=== PATIENT | female | born 1985 | race Caucasian/White ===

== ENCOUNTER 2020-12-23 01:15 | Day surgery (SDC) | payer BC, SELFPAY ==
[2020-12-09 11:07] VITALS: BMI 30.8
[2020-12-23 09:36] VITALS: BP 124/78; PULSE 93; RESP 18; TEMP 35.9; O2SAT 100
[2020-12-23] MEDS: LACTATED RINGERS 1,000 ML 150 ML IV CONT (09:56)
--- NOTE | 2020-12-23 11:00 | WPDANESEPPF ---
Anes - Initial Pre Proc Eval Procedure: Operation Date: 12/23/20 10:45 Proposed Procedures p Esophagogastroduodenoscopy - Cory Reagan MD Date/Time: 12/23/20 11:00 Surgeon: Cory Reagan MD Pre Op Diagnosis: dysphagia Patient Data Age: 35 Gender: F Height: 1.65 m Weight: 93 kg Last Vital Signs Temp 35.9 C L 12/23/20 09:36 Pulse 93 12/23/20 09:36 Resp 18 12/23/20 09:36 BP 124/78 12/23/20 09:36 Pulse Ox 100 12/23/20 09:36 Allergies Allergy/AdvReac Type Severity Reaction Status Date / Time Sulfa (Sulfonamide Allergy Severe Swelling Verified 12/23/20 09:35 Antibiotics) of Lip/Tongue/Throat Home Medications Medication Instructions Recorded Confirmed Type albuterol sulfate 2.5 mg INHALATION Q4-6H PRN #3 ml 07/08/20 12/23/20 Rx albuterol sulfate 90 mcg/actuation 2 puff INHALATION QID PRN #8 gm 09/19/20 12/09/20 Rx aerosol inhaler Patient hx anesthesia problems: none Family hx anesthesia problems: none PMFSH Past Medical History Medical History (Updated 12/22/20 @ 15:13 by Abilio Rollins DO) Asthma Encounter for long-term (current) use of other medications Family history of osteoporosis Nocturnal leg cramps Restless leg syndrome Family History Family History Mother Hypertension Diabetes mellitus Grandparent Family history of malignant neoplasm of breast Family history of type 2 diabetes mellitus Father COPD (chronic obstructive pulmonary disease) Emphysema lung Small vessel disease Grandparent Hypertension Grandparent Diabetes mellitus Social History Social History Smoking status: Never smoker Alcohol intake: never Substance use: current Substance use type: marijuana Other substance usage details: COUPLE TIMES A WEEK Living arrangements: with family Gender identity (if verbalized by the patient): Female Spiritual care concerns: No Anes - Eval Final PreProcedure Day of Procedure 12/23/20 11:00 Patient weight: obese Heart: regular rate and rhythm Lungs: clear to auscultation and normal air movement Airway: Mallampati scale class II Neurological: alert and oriented Last oral intake: >/= 8 hours ASA classification: III Emergent: no Anesthetic plan: proceed Anesthesia type and monitoring: general GIVS and standard monitoring Informed Consent: The patient's anesthetic plan and its attendant risks and benefits were discussed with the patient/family/POA. Questions were solicited and answers provided to the satisfaction of the patient/family/POA.
[2020-12-23] MEDS: BENZOCAINE (*SP) 60 ML SPRAY CAN (HURRICAINE) 1 SPRAY MUCOUS MEM (11:28)
--- NOTE | 2020-12-23 11:39 | PM.HPGS ---
History of Present Illness History of Present Illness Consent: Risks, benefits, and alternatives have been discussed and questions answered. Patient agrees to proceed with procedure. Chief complaint: dysphagia Narrative: Eleanor Quiroga is a 35 year old female with scratchy cough and last 2 months also whitish sputum, using tums, never had EGD or tried PPI. She has seen ENT. Also h/o asthma. Review of Systems Constitutional: Constitutional: Denies headache(s) and Denies weakness Eyes: Eyes: Denies blurry vision ENT: Reports Normal hearing present, Denies headache(s) and Denies neck pain Cardiovascular: Cardiovascular: Denies chest pain and Denies dyspnea Respiratory: Respiratory: Denies dyspnea Gastrointestinal: Gastrointestinal: Reports no additional gastrointestinal complaints Genitourinary: Genitourinary: Denies dysuria Musculoskeletal: Musculoskeletal: Denies neck pain Integumentary/Breasts: Skin/Breast: Denies dry skin Neurologic: Reports Normal hearing present, Denies headache(s) and Denies weakness Psychiatric: Psychiatric: Denies anxiety Endocrine: Endocrine: Denies change in body appearance Hematologic/Lymphatic: Hematologic/Lymphatic: Denies easy bleeding Allergic/Immunologic: Allergic/Immunologic: Denies urticaria PMFSH Past Medical History Medical History (Updated 12/23/20 @ 11:40 by Cory Reagan MD) Asthma Cough Encounter for long-term (current) use of other medications Family history of osteoporosis Nocturnal leg cramps Restless leg syndrome Family History Family History Mother Hypertension Diabetes mellitus Grandparent Family history of malignant neoplasm of breast Family history of type 2 diabetes mellitus Father COPD (chronic obstructive pulmonary disease) Emphysema lung Small vessel disease Grandparent Hypertension Grandparent Diabetes mellitus Social History Social History Smoking status: Never smoker Alcohol intake: never Substance use: current Substance use type: marijuana Other substance usage details: COUPLE TIMES A WEEK Living arrangements: with family Gender identity (if verbalized by the patient): Female Spiritual care concerns: No Meds Home Medications and Allergies Home Medications Medication Instructions Recorded Confirmed Type albuterol sulfate 2.5 mg INHALATION Q4-6H PRN #3 ml 07/08/20 12/23/20 Rx albuterol sulfate 90 mcg/actuation 2 puff INHALATION QID PRN #8 gm 09/19/20 12/09/20 Rx aerosol inhaler Allergies Allergy/AdvReac Type Severity Reaction Status Date / Time Sulfa (Sulfonamide Allergy Severe Swelling Verified 12/23/20 09:35 Antibiotics) of Lip/Tongue/Throat Vital Signs Vital Signs - 24 hr 12/23/20 09:36 Temperature 96.6 F L Pulse Rate 93 Respiratory Rate 18 Blood Pressure 124/78 Pulse Oximetry 100 Exam Const: General: comfortable and no acute distress HENMT: General nose exam: Normal nares present Eyes: General: appearance normal, both eyes and all related structures Neck: Neck: no JVD Resp: Auscultation: clear to auscultation bilaterally Cardio: Rate: regular rate Rhythm: regular rhythm GI: Inspection: non-distended GI Palp: Yes Soft to palpation Skin: General skin exam: normal color Neuro: General: gait normal Speech: normal speech Extrem: General: normal to inspection Psych: Mental Status: mental status grossly normal Assessment and Plan Assessment and plan (1) Cough: Code(s): R05 - Cough Status: Acute Assessment and Plan: egd, assess for reflux, etc
[2020-12-23 11:43] VITALS: BP 107/62; PULSE 104; RESP 23; O2SAT 98
[2020-12-23 11:53] VITALS: BP 102/75; PULSE 91; RESP 13; O2SAT 100
[2020-12-23 12:03] VITALS: BP 121/80; PULSE 86; RESP 15; O2SAT 96
== END 2020-12-23 12:16 | disposition home or self-care (01) ==
PROVIDERS: PCP Family Medicine; Visit Provider Internal Medicine Gastroenterology
PROC: 0DJ08ZZ Inspection of Upper Intestinal Tract, Via Natural or Artificial Opening Endoscopic (ICD-10-PCS; CPT 43235; principal; 2020-12-23 10:45)
DX: R05 Cough (principal); K44.9 Diaphragmatic hernia without obstruction or gangrene; K29.50 Unspecified chronic gastritis without bleeding; R13.10 Dysphagia, unspecified; Z79.51 Long term (current) use of inhaled steroids; J45.909 Unspecified asthma, uncomplicated; G25.81 Restless legs syndrome; F12.90 Cannabis use, unspecified, uncomplicated; E66.9 Obesity, unspecified; Z68.34 Body mass index [BMI] 34.0-34.9, adult
CPT/HCPCS: 43239; 88305; J2001; J2704; J7120

== ENCOUNTER 2022-07-06 12:11 | Outpatient (CLI) | payer OTHER, SELFPAY ==
--- NOTE | ~2022-07-06 | XR_ITS ---
Clinical Indication: Cough PA and lateral views of the chest: Comparison: 05/21/2019 Findings: The lungs are clear, without evidence of focal consolidation or pleural effusion. Cardiome diastinal silhouette is within normal limits. Bones and soft tissues are unremarkable. Impression: Normal chest. Reviewed, dictated and finalized at [facility]. [employer] Impression: Normal chest.
[2022-07-06 20:03] LABS: Cholesterol 237 mg/dL (0-200); HDL Direct 42 mg/dL; Triglycerides 297 mg/dL (<150)
[2022-07-06 20:07] LABS: Iron 28 ug/dL (37-170)
[2022-07-06 20:14] LABS: LDL Cholesterol Direct 125 mg/dL
[2022-07-06 20:19] LABS: Percent Iron Saturation 7 % (20-50)
== END 2022-07-06 12:12 | disposition home or self-care (01) ==
PROVIDERS: PCP Family Medicine; Visit Provider Family Medicine
DX: R06.00 Dyspnea, unspecified (principal); J45.901 Unspecified asthma with (acute) exacerbation
CPT/HCPCS: 36415; 71046; 80061; 82607; 83540; 83550

== ENCOUNTER 2023-06-30 13:08 | Emergency (ER) | payer OTHER, SELFPAY ==
[2023-06-30 13:24] VITALS: BP 126/81; PULSE 80; RESP 20; TEMP 36.9; O2SAT 100
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
== END 2023-06-30 13:56 | disposition home or self-care (01) ==
PROVIDERS: Emergency Provider Nurse Practitioner; PCP Family Medicine
DX: M54.6 Pain in thoracic spine (principal); J45.909 Unspecified asthma, uncomplicated; G25.81 Restless legs syndrome; F12.90 Cannabis use, unspecified, uncomplicated
CPT/HCPCS: 99213; G0463

== ENCOUNTER 2024-02-03 17:41 | Emergency (ER) | payer OTHER, SELFPAY ==
[2024-02-03 17:47] VITALS: BP 137/75; PULSE 94; RESP 20; TEMP 37.2; O2SAT 100
--- NOTE | 2024-02-03 17:58 | ED.URI ---
HPI - URI/Sore Throat General Chief Complaint: Asthma Stated Complaint: asthma/cough/sob Time Seen by Provider: 02/03/24 18:08 Source: patient and RN notes reviewed Mode of arrival: ambulatory Limitations: no limitations History of Present Illness HPI Narrative: 38-year-old female with history of asthma presents with concern for asthma exacerbation. She reports cough, shortness of breath. Reports in the past several days she has used 60 puffs of her inhaler she has used her nebulizer 10 times. She last used her nebulizer this morning. She reports general malaise, fatigue, runny nose, stuffy nose, sore throat, cough. MD elicited complaint: cough and sore throat Related Data Allergies Allergy/AdvReac Type Severity Reaction Status Date / Time Sulfa (Sulfonamide Allergy Severe Swelling Verified 02/03/24 17:48 Antibiotics) of Lip/Tongue/Throat Review of Systems Review of Systems: CONSTITUTIONAL: Reports malaise, fatigue. Denies chills, sweats, or fever. EYES: Denies visual changes, redness, or discharge. ENT: Reports rhinorrhea, congestion, and sore throat. CARDIOVASCULAR: Denies chest pain, palpitations, or edema. RESPIRATORY: Reports cough, wheezing, dyspnea. GASTROINTESTINAL: Denies abdominal pain, nausea, diarrhea. Reports stomach ache SKIN: Denies rash or itching. MUSCULOSKELETAL: Reports myalgia. NEUROLOGIC: Reports headache. All systems reviewed & are unremarkable except as noted in HPI and below PMFSH Past Medical History Medical History (Updated 02/03/24 @ 18:23 by Tata Reyes NP) Asthma Cough Encounter for long-term (current) use of other medications Family history of osteoporosis Nocturnal leg cramps Restless leg syndrome Family History Family History Mother Hypertension Diabetes mellitus Grandparent Family history of malignant neoplasm of breast Family history of type 2 diabetes mellitus Father COPD (chronic obstructive pulmonary disease) Emphysema lung Small vessel disease Grandparent Hypertension Grandparent Diabetes mellitus Social History Social History (Updated 02/23/23 @ 11:48 by Maya Mitchell MA) Smoking status: Never smoker Alcohol intake: never Substance use: current Substance use type: marijuana Other substance usage details: COUPLE TIMES A WEEK Lack of Transportation: No Lack of Food: Never True Current Housing: I Have Housing Concerned About Future Housing: No Difficulty Paying Gas/Electric Bills: YES Difficulty Paying for Meds: No Currently Unemployed: No Education: Decline to Answer Difficulty w/ Childcare or Family Care: No Living arrangements: with family Gender identity (if verbalized by the patient): Female Spiritual care concerns: No Comments At time of signature, agree with nursing past medical, surgical, social and family history. There is no relevant family history pertinent to the presenting complaint Exam Narrative: GENERAL: Nontoxic-appearing, well-nourished, and in no acute distress. HEAD: Normocephalic EYES: PERRLA, conjunctivae clear ENT: Nares clear, turbinates edematous and erythematous, clear discharge. Mucous membranes moist. TM pearly gonzáles with dull light reflex bilaterally; no tragal tenderness. Oropharynx not erythematous without lesions. Tonsils not enlarged and without exudate, no drooling, no hoarseness, no trismus, uvula midline. NECK: Supple. No lymphadenopathy CHEST: Inspiratory wheeze throughout, scattered expiratory wheeze, breath sounds equal. No rhonchi, rales, or stridor. Conversational dyspnea HEART: Regular rate and rhythm. No murmur heard. SKIN: Warm, dry, no rash. NEURO: Alert and oriented x3. PSYCH: Normal mood and affect Course Course Emergency Course: Patient is aware of diagnosis, understands and agrees to treatment plan. Anticipatory guidance given. Patient agrees to follow-up as directed and is aware
[2024-02-03] MEDS: IPRATROPIUM 0.5 MG/ALBUTEROL SULFATE 2.5 MG AMPUL.NEB 3 ML INHALATION (18:27)
[2024-02-03 18:30] LABS: EDSTREPNEGPOS1 Negative
[2024-02-03 18:45] VITALS: PULSE 90; RESP 20; O2SAT 100
== END 2024-02-03 18:48 | disposition home or self-care (01) ==
PROVIDERS: Emergency Provider Nurse Practitioner; PCP Family Medicine
DX: J45.901 Unspecified asthma with (acute) exacerbation (principal); Z20.822 Contact with and (suspected) exposure to COVID-19; F12.90 Cannabis use, unspecified, uncomplicated; G25.81 Restless legs syndrome
CPT/HCPCS: 87081; 87426; 87880; 94640; 99213; G0463

== ENCOUNTER 2024-07-17 08:18 | Emergency (ER) | payer OTHER, SELFPAY ==
[2024-07-17 08:26] VITALS: BP 120/85; PULSE 103; RESP 20; TEMP 37.1; O2SAT 100
--- OUTSIDE RECORDS SUMMARY | 2024-07-17 08:28 | XMS_ITS | Data Portability ---
Author Organization [facility] Address [address] [place] [address] Care Team Providers Care Creative Designer Name Role Phone NEETU ADAMES Primary Care Provider Assessment No assessment recorded. Plan of Treatment Reminders Order Date Submit Date Provider Last Modified By Organization Details Last Modified Time Details Appointments None recorded. Lab urinalysis, dipstick 2015 016 [email or web address] In-Office Order, Internal Use Only DO Not Attach Compendium DO Not Attach Compendium, Do Not Delete/merge, [id number] 6 17:15:47 bacterial vaginosis + vaginitis panel, vaginal 2015 016 [facility], [address] [place] [address], [address], [place], [address], 6 07:14:15 culture, vaginal/rec kayleigh, streptococc us group B 2015 016 [facility], [address], [address], [place], [address], 6 07:14:16 urinalysis, dipstick 2015 016 [place] In-Office Order, Internal Use Only DO Not Attach Compendium DO Not Attach Compendium, Do Not Delete/merge, [id number] 6 13:07:36 urinalysis, dipstick 2015 016 In-Office Order, Internal Use Only DO Not Attach Compendium DO Not Attach Compendium, Do Not Delete/merge, [id number] 6 04:29:22 urinalysis, dipstick 2015 016 In-Office Order, Internal Use Only DO Not Attach Compendium DO Not Attach Compendium, Do Not Delete/merge, [id number] 6 04:29:19 bacterial vaginosis + vaginitis panel, vaginal 2015 016 [facility], [address], [address], [place], [address], 6 04:32:55 Referral None recorded. Procedures None recorded. Surgeries None recorded. Imaging None recorded. Medication Orders None recorded. Patient TargetsNo targets recorded. Patient Instructions Encounter Date Encounter Id Patient Instructions Last Modified By Organization Details Last Modified Time 03/05/2016 [id number] GBS culture was sent. Patient was informed that upper back pain was most likely musculoskeletal in nature. labor precautions were given. Patient will receive GBS culture next visit. [email or web address] Not available 03/07/2016 17:15:47 03/11/2016 [id number] Flu vaccination was ordered. [email or web address] Not available 03/11/2016 12:49:00 03/19/2016 [id number] Patient denies vaginal bleeding and leakage of fluid. Labor precautions were given. [email or web address] Not available 03/19/2016 13:12:39 03/23/2016 [id number] Labor precaution s were given. [email or web address] Not available 2016 16:00:30 05/10/2016 [id number] Care at Home With Your Baby: Care Instructions [email or web address] Not available 05/17/2016 16:47:31 Patient is doing well. Vaginitis panel was sent. Patient's partner will have a vasectomy. [email or web address] Not available 06/14/2016 13:07:27 Reason for Referral None Reported. Results Created Date Observation Date Name Description Value Unit Range Abnormal Flag Note LastModifiedBy Organization Detail LastModifiedTime 03/23/20 16 03/23/2016 urina lysis , dipst ick Leukocytes Negati ve Not Available In-Office Order Internal Use Only DO Not Attach Compendium DO Not Attach Compendium, Do Not Delete/merge, 03/23/2016 11:12:00 03/23/20 16 03/23/2016 urina lysis , dipst ick Nitrite negati ve Not Available In-Office Order Internal Use Only DO Not Attach Compendium DO Not Attach Compendium, Do Not Delete/merge, 03/23/2016 11:12:00 03/23/20 16 03/23/2016 urina lysis , dipst ick Urobilinogen .2 Not Available In-Of fice Order Internal Use Only DO Not Attach Compendium DO Not Attach Compendium, Do Not Delete/merge, 03/23/2016 11:12:00 03/23/20 16 03/23/2016 urina lysis , dipst ick Protein Negati ve Not Available In-Office Order Internal Use Only DO Not Attach Compendium DO Not Attach Compendium, Do Not Delete/merge, 03/23/2016 11:12:00 03/23/20 16 03/23/2016 urina lysis , dipst ick pH 7.0 Not Available In-Office Order Internal Use Only DO Not Attach Compendium DO Not Attach Compendium, Do Not Delete/merge, 03/23/2016 11:12:00 03/23/20 16 03/23/2016 urina lysis , dipst ick Blood Negati ve Not Available In-Office Order Internal Use Only DO Not Attach Compendium DO Not Attach Compendium, Do Not Delete/merge, 03/23/2016 11:12:00 03/23/20 16 03/23/2016 urina lysis , dipst ick Specific Bush 1.020 Not Available In-Off ice Order Internal Use Only DO Not Attach Compendium DO Not Attach Compendium, Do Not Delete/merge, 03/23/2016 11:12:00 03/23/20 16 03/23/2016 urina lysis , dipst ick Ketone Negati ve Not Available In-Office Order Internal Use Only DO Not Attach Compendium DO Not Attach Compendium, Do Not Delete/merge, 03/23/2016 11:12:00 03/23/20 16 03/23/2016 urina lysis , dipst ick Bilirubin Negati ve Not Available In-Office Order Internal Use Only DO Not Attach Compendium DO Not Attach Compendium, Do Not Delete/merge, [id number] 03/23/2016 11:12:00 03/23/20 16 03/23/2016 urina lysis , dipst ick Glucose Negati ve Not Available In-Office Order Internal Use Only DO Not Attach Compendium DO Not Attach Compendium, Do Not Delete/merge, [id number] 03/23/2016 11:12:00 03/23/20 16 03/23/2016 urina lysis , dipst ick Appearance Cloudy Not Available In-Offi ce Order Internal Use Only DO Not Attach Compendium DO Not Attach Compendium, Do Not Delete/merge, [id number] 03/23/2016 11:12:00 03/23/20 16 03/23/2016 urina lysis , dipst ick Color Dark Yellow Not Available In-Office Order Internal Use Only DO Not Attach Compendium DO Not Attach Compendium, Do Not Delete/merge, [id number] 03/23/2016 11:12:00 03/19/20 16 03/19/2016 urina lysis , dipst ick Leukocytes Small Not Available In-Offi ce Order Internal Use Only DO Not Attach Compendium DO Not Attach Compendium, Do Not Delete/merge, [id number] 03/19/2016 12:05:34 03/19/20 16 03/19/2016 urina lysis , dipst ick Nitrite negati ve Not Available In-Office Order Internal Use Only DO Not Attach Compendium DO Not Attach Compendium, Do Not Delete/merge, [id number] 03/19/2016 12:05:34 03/19/20 16 03/19/2016 urina lysis , dipst ick Urobilinogen .2 Not Available In-Of fice Order Internal Use Only DO Not Attach Compendium DO Not Attach Compendium, Do Not Delete/merge, [id number] 03/19/2016 12:05:34 03/19/20 16 03/19/2016 urina lysis , dipst ick Protein Negati ve Not Available In-Office Order Internal Use Only DO Not Attach Compendium DO Not Attach Compendium, Do Not Delete/merge, [id number] 03/19/2016 12:05:34 03/19/20 16 03/19/2016 urina lysis , dipst ick pH 5.5 Not Available In-Office Order Internal Use Only DO Not Attach Compendium DO Not Attach Compendium, Do Not Delete/merge, 03/19/2016 12:05:34 03/19/20 16 03/19/2016 urina lysis , dipst ick Blood Negati ve Not Available In-Office Order Internal Use Only DO Not Attach Compendium DO Not Attach Compendium, Do Not Delete/merge, 03/19/2016 12:05:34 03/19/20 16 03/19/2016 urina lysis , dipst ick Specific Bush 1.030 Not Available In-Off ice Order Internal Use Only DO Not Attach Compendium DO Not Attach Compendium, Do Not Delete/merge, 03/19/2016 12:05:34 03/19/20 16 03/19/2016 urina lysis , dipst ick Ketone Negati ve Not Available In-Office Order Internal Use Only DO Not Attach Compendium DO Not Attach Compendium, Do Not Delete/merge, 03/19/2016 12:05:34 03/19/20 16 03/19/2016 urina lysis , dipst ick Bilirubin Negati ve Not Available In-Office Order Internal Use Only DO Not Attach Compendium DO Not Attach Compendium, Do Not Delete/merge, 03/19/2016 12:05:34 03/19/20 16 03/19/2016 urina lysis , dipst ick Glucose Negati ve Not Available In-Office Order Internal Use Only DO Not Attach Compendium DO Not Attach Compendium, Do Not Delete/merge, [id number] 03/19/2016 12:05:34 03/19/20 16 03/19/2016 urina lysis , dipst ick Appearance Clear Not Available In-Offi ce Order Internal Use Only DO Not Attach Compendium DO Not Attach Compendium, Do Not Delete/merge, [id number] 03/19/2016 12:05:34 03/19/20 16 03/19/2016 urina lysis , dipst ick Color Yellow Not Available In-Office Order Internal Use Only DO Not Attach Compendium DO Not Attach Compendium, Do Not Delete/merge, [id number] 03/19/2016 12:05:34 03/11/20 16 03/11/2016 urina lysis , dipst ick Leukocytes Trace Not Available In-Offi ce Order Internal Use Only DO Not Attach Compendium DO Not Attach Compendium, Do Not Delete/merge, 03/11/2016 12:01:14 03/11/20 16 03/11/2016 urina lysis , dipst ick Nitrite negati ve Not Available In-Office Order Internal Use Only DO Not Attach Compendium DO Not Attach Compendium, Do Not Delete/merge, 03/11/2016 12:01:14 03/11/20 16 03/11/2016 urina lysis , dipst ick Urobilinogen .2 Not Available In-Of fice Order Internal Use Only DO Not Attach Compendium DO Not Attach Compendium, Do Not Delete/merge, 03/11/2016 12:01:14 03/11/20 16 03/11/2016 urina lysis , dipst ick Protein Trace Not Available In-Office Order Internal Use Only DO Not Attach Compendium DO Not Attach Compendium, Do Not Delete/merge, 03/11/2016 12:01:14 03/11/20 16 03/11/2016 urina lysis , dipst ick pH 7.5 Not Available In-Office Order Internal Use Only DO Not Attach Compendium DO Not Attach Compendium, Do Not Delete/merge, 03/11/2016 12:01:14 03/11/20 16 03/11/2016 urina lysis , dipst ick Blood Negati ve Not Available In-Office Order Internal Use Only DO Not Attach Compendium DO Not Attach Compendium, Do Not Delete/merge, 03/11/2016 12:01:14 03/11/20 16 03/11/2016 urina lysis , dipst ick Specific Bush 1.020 Not Available In-Off ice Order Internal Use Only DO Not Attach Compendium DO Not Attach Compendium, Do Not Delete/merge, 03/11/2016 12:01:14 03/11/20 16 03/11/2016 urina lysis , dipst ick Ketone Negati ve Not Available In-Office Order Internal Use Only DO Not Attach Compendium DO Not Attach Compendium, Do Not Delete/merge, 03/11/2016 12:01:14 03/11/20 16 03/11/2016 urina lysis , dipst ick Bilirubin Negati ve Not Available In-Office Order Internal Use Only DO Not Attach Compendium DO Not Attach Compendium, Do Not Delete/merge, 03/11/2016 12:01:14 03/11/20 16 03/11/2016 urina lysis , dipst ick Glucose Negati ve Not Available In-Office Order Internal Use Only DO Not Attach Compendium DO Not Attach Compendium, Do Not Delete/merge, 03/11/2016 12:01:14 03/11/20 16 03/11/2016 urina lysis , dipst ick Appearance Cloudy Not Available In-Offi ce Order Internal Use Only DO Not Attach Compendium DO Not Attach Compendium, Do Not Delete/merge, 03/11/2016 12:01:14 03/11/20 16 03/11/2016 urina lysis , dipst ick Color Yellow Not Available In-Office Order Internal Use Only DO Not Attach Compendium DO Not Attach Compendium, Do Not Delete/merge, 03/11/2016 12:01:14 03/05/20 16 03/05/2016 urina lysis , dipst ick Leukocytes Negati ve Not Available In-Office Order Internal Use Only DO Not Attach Compendium DO Not Attach Compendium, Do Not Delete/merge, 03/05/2016 11:43:48 03/05/20 16 03/05/2016 urina lysis , dipst ick Nitrite negati ve Not Available In-Office Order Internal Use Only DO Not Attach Compendium DO Not Attach Compendium, Do Not Delete/merge, 03/05/2016 11:43:48 03/05/20 16 03/05/2016 urina lysis , dipst ick Urobilinogen .2 Not Available In-Of fice Order Internal Use Only DO Not Attach Compendium DO Not Attach Compendium, Do Not Delete/merge, 03/05/2016 11:43:48 03/05/20 16 03/05/2016 urina lysis , dipst ick Protein Negati ve Not Available In-Office Order Internal Use Only DO Not Attach Compendium DO Not Attach Compendium, Do Not Delete/merge, 03/05/2016 11:43:48 03/05/20 16 03/05/2016 urina lysis , dipst ick pH 5.5 Not Available In-Office Order Internal Use Only DO Not Attach Compendium DO Not Attach Compendium, Do Not Delete/merge, 03/05/2016 11:43:48 03/05/20 16 03/05/2016 urina lysis , dipst ick Blood Negati ve Not Available In-Office Order Internal Use Only DO Not Attach Compendium DO Not Attach Compendium, Do Not Delete/merge, 03/05/2016 11:43:48 03/05/2003/05/2016 urina lysis , dipst ick Specific Bush 1.025 Not Available In-Off ice Order Internal Use Only DO Not Attach Compendium DO Not Attach Compendium, Do Not Delete/merge, 03/05/2016 11:43:48 03/05/20 16 03/05/2016 urina lysis , dipst ick Ketone Negati ve Not Available In-Office Order Internal Use Only DO Not Attach Compendium DO Not Attach Compendium, Do Not Delete/merge, 03/05/2016 11:43:48 03/05/20 16 03/05/2016 urina lysis , dipst ick Bilirubin Negati ve Not Available In-Office Order Internal Use Only DO Not Attach Compendium DO Not Attach Compendium, Do Not Delete/merge, 03/05/2016 11:43:48 03/05/2003/05/2016 urina lysis , dipst ick Glucose Negati ve Not Available In-Office Order Internal Use Only DO Not Attach Compendium DO Not Attach Compendium, Do Not Delete/merge, 03/05/2016 11:43:48 03/05/2003/05/2016 urina lysis , dipst ick Appearance Cloudy Not Available In-Offi ce Order Internal Use Only DO Not Attach Compendium DO Not Attach Compendium, Do Not Delete/merge, 03/05/2016 11:43:48 03/05/20 16 03/05/2016 urina lysis , dipst ick Color Yellow Not Available In-Office Order Internal Use Only DO Not Attach Compendium DO Not Attach Compendium, Do Not Delete/merge, 03/05/2016 11:43:48 02/20/20 16 02/20/2016 urina lysis , dipst ick Leukocytes Trace Not Available In-Offi ce Order Internal Use Only DO Not Attach Compendium DO Not Attach Compendium, Do Not Delete/merge, 02/20/2016 14:37:51 02/20/20 16 02/20/2016 urina lysis , dipst ick Nitrite negati ve Not Available In-Office Order Internal Use Only DO Not Attach Compendium DO Not Attach Compendium, Do Not Delete/merge, 02/20/2016 14:37:51 02/20/20 16 02/20/2016 urina lysis , dipst ick Urobilinogen .2 Not Available In-Of fice Order Internal Use Only DO Not Attach Compendium DO Not Attach Compendium, Do Not Delete/merge, 02/20/2016 14:37:51 02/20/20 16 02/20/2016 urina lysis , dipst ick Protein 30 Not Available In-Office Order Internal Use Only DO Not Attach Compendium DO Not Attach Compendium, Do Not Delete/merge, 02/20/2016 14:37:51 02/20/20 16 02/20/2016 urina lysis , dipst ick pH 7.0 Not Available In-Office Order Internal Use Only DO Not Attach Compendium DO Not Attach Compendium, Do Not Delete/merge, 02/20/2016 14:37:51 02/20/20 16 02/20/2016 urina lysis , dipst ick Blood Negati ve Not Available In-Office Order Internal Use Only DO Not Attach Compendium DO Not Attach Compendium, Do Not Delete/merge, 02/20/2016 14:37:51 02/20/20 16 02/20/2016 urina lysis , dipst ick Specific Bush 1.020 Not Available In-Off ice Order Internal Use Only DO Not Attach Compendium DO Not Attach Compendium, Do Not Delete/merge, 02/20/2016 14:37:51 02/20/20 16 02/20/2016 urina lysis , dipst ick Ketone Trace Not Available In-Office Order Internal Use Only DO Not Attach Compendium DO Not Attach Compendium, Do Not Delete/merge, 02/20/2016 14:37:51 02/20/20 16 02/20/2016 urina lysis , dipst ick Bilirubin Negati ve Not Available In-Office Order Internal Use Only DO Not Attach Compendium DO Not Attach Compendium, Do Not Delete/merge, 02/20/2016 14:37:51 02/20/20 16 02/20/2016 urina lysis , dipst ick Glucose Negati ve Not Available In-Office Order Internal Use Only DO Not Attach Compendium DO Not Attach Compendium, Do Not Delete/merge, 02/20/2016 14:37:51 02/06/20 16 02/06/2016 urina lysis , dipst ick Leukocytes Small Not Available In-Offi ce Order Internal Use Only DO Not Attach Compendium DO Not Attach Compendium, Do Not Delete/merge, 02/06/2016 14:15:17 02/06/20 16 02/06/2016 urina lysis , dipst ick Nitrite negati ve Not Available In-Office Order Internal Use Only DO Not Attach Compendium DO Not Attach Compendium, Do Not Delete/merge, 02/06/2016 14:15:17 02/06/20 16 02/06/2016 urina lysis , dipst ick Urobilinogen .2 Not Available In-Of fice Order Internal Use Only DO Not Attach Compendium DO Not Attach Compendium, Do Not Delete/merge, 02/06/2016 14:15:17 02/06/20 16 02/06/2016 urina lysis , dipst ick Protein Negati ve Not Available In-Office Order Internal Use Only DO Not Attach Compendium DO Not Attach Compendium, Do Not Delete/merge, 02/06/2016 14:15:17 02/06/20 16 02/06/2016 urina lysis , dipst ick pH 6.0 Not Available In-Office Order Internal Use Only DO Not Attach Compendium DO Not Attach Compendium, Do Not Delete/merge, [id number] 02/06/2016 14:15:17 02/06/20 16 02/06/2016 urina lysis , dipst ick Blood Negati ve Not Available In-Office Order Internal Use Only DO Not Attach Compendium DO Not Attach Compendium, Do Not Delete/merge, [id number] 02/06/2016 14:15:17 02/06/20 16 02/06/2016 urina lysis , dipst ick Specific Bush 1.025 Not Available In-Off ice Order Internal Use Only DO Not Attach Compendium DO Not Attach Compendium, Do Not Delete/merge, [id number] 02/06/2016 14:15:17 02/06/20 16 02/06/2016 urina lysis , dipst ick Ketone Negati ve Not Available In-Office Order Internal Use Only DO Not Attach Compendium DO Not Attach Compendium, Do Not Delete/merge, [id number] 02/06/2016 14:15:17 02/06/20 16 02/06/2016 urina lysis , dipst ick Bilirubin Negati ve Not Available In-Office Order Internal Use Only DO Not Attach Compendium DO Not Attach Compendium, Do Not Delete/merge, [id number] 02/06/2016 14:15:17 02/06/20 16 02/06/2016 urina lysis , dipst ick Glucose Negati ve Not Available In-Office Order Internal Use Only DO Not Attach Compendium DO Not Attach Compendium, Do Not Delete/merge, [id number] 02/06/2016 14:15:17 02/06/20 16 02/06/2016 urina lysis , dipst ick Appearance Cloudy Not Available In-Offi ce Order Internal Use Only DO Not Attach Compendium DO Not Attach Compendium, Do Not Delete/merge, [id number] 02/06/2016 14:15:17 02/06/20 16 02/06/2016 urina lysis , dipst ick Color Yellow Not Available In-Office Order Internal Use Only DO Not Attach Compendium DO Not Attach Compendium, Do Not Delete/merge, [id number] 02/06/2016 14:15:17 02/20/20 16 02/22/2016 cultu re, urine urine culture, routine FINAL REPORT Not Available [facility] ([facility]) [address], [place], [address], 02/22/2016 07:07:51 02/20/20 16 02/22/2016 cultu re, urine result 1 COMMEN T MIXED UROGE NITAL DEO LESS THAN 10,00 0 COLON IES/M L Not Available [facility] ([facility]) [address], [place], [address], 02/22/2016 07:07:51 03/05/20 16 03/07/2016 bacte rial vagin osis + vagin itis panel , vagin al trich vag by GONZALEZ NEGATI VE negati ve Not Available [facility] ([facility]) [address], [place], [address], 03/09/2016 07:14:15 03/05/20 16 03/08/2016 bacte rial vagin osis + vagin itis panel , vagin al chlamydia trachomatis, GONZALEZ NEGATI VE negati ve Not Available [facility] ([facility]) [address] [place], [address], 03/09/2016 07:14:15 03/05/20 16 03/08/2016 bacte rial vagin osis + vagin itis panel , vagin al neisseria gonorrhoeae, GONZALEZ NEGATI VE negati ve Not Available [facility] ([facility]) [address] [place], [address], 03/09/2016 07:14:15 03/05/20 16 03/09/2016 bacte rial vagin osis + vagin itis panel , vagin al atopobium vaginae LOW - 0 score Not Available [facility] ([facility]) [address] [place], [address], 03/09/2016 07:14:15 03/05/20 16 03/09/2016 bacte rial vagin osis + vagin itis panel , vagin al bvab 2 LOW - 0 score Not Available [facility] ([facility]) [address] [place], [address], 03/09/2016 07:14:15 03/05/20 16 03/09/2016 bacte rial vagin osis + vagin itis panel , vagin al megasphaera 1 LOW - 0 score CALCU LATE TOTAL SCORE BY JOSELUIS Haynes THE 3 INDIV IDUAL BACTE RIAL VAGIN OSIS (BV) MARKE R SCORE S TOGET HER. TOTAL SCORE IS INTER PRETE D FOLLO WS: TOTAL SCORE 0-1: INDIC ATES THE ABSEN CE OF BV. TOTAL SCORE 2: INDET ERMIN ATE FOR BV. ADDIT IONAL CLINI ARJUN DATA SHOUL D BE EVALU ATED TO ESTAB JAVED A DIAGN OSIS. TOTAL SCORE 3-6: INDIC ATES THE PRESE NCE OF BV. THIS TEST WAS DEVEL OPED AND ITS PERFO RMANC E PAO CTERI STICS DETER MINED BY [employer]. IT HAS NOT BEEN CLEAR ED OR APPRO EFREN BY THE FOOD AND DRUG ADMIN ISTRA TION. THE FDA HAS DETER MINED THAT SUCH CLEAR ANCE OR APPRO GAVIOTA IS NOT NECES SUNNY. Not Available [facility] ([facility]) [address], [place], [address], 03/09/2016 07:14:15 03/05/20 16 03/09/2016 bacte rial vagin osis + vagin itis panel , vagin al russell albicans, GONZALEZ NEGATI VE negati ve Not Available [facility] ([facility]) [address] [place], [address], 03/09/2016 07:14:15 03/05/20 16 03/09/2016 bacte rial vagin osis + vagin itis panel , vagin al russell glabrata, GONZALEZ NEGATI VE negati ve THIS TEST WAS DEVEL OPED AND ITS PERFO RMANC E PAO CTERI STICS DETER MINED BY [employer]. IT HAS NOT BEEN CLEAR ED OR APPRO EFREN BY THE FOOD AND DRUG ADMIN ISTRA TION. THE FDA HAS DETER MINED THAT SUCH CLEAR ANCE OR APPRO GAVIOTA IS NOT NECES SUNNY. Not Available [facility] ([facility]) [address], [place], [address], 03/09/2016 07:14:15 03/05/20 16 03/07/2016 cultu re, vagin al/re ctal, strep tococ cus group B strep gp B GONZALEZ NEGATI VE negati ve [facility] FOR DISEA SE CONTR OL AND PREVE NTION ([facility]) AND [facility] CAN CONGR ESS OF OBSTE TRICI ANS AND GYNEC OLOGI STS (ACOG ) GUIDE LINES FOR PREVE NTION OF PERIN ATAL GROUP B STREP TOCOC ARJUN (GBS) DISEA SE SPECI FY CO-CO LLECT ION OF A VAGIN AL AND RECTA L SWAB SPECI MEN TO MAXIM IZE SENSI TIVIT Y OF GBS DETEC TION. PER THE [facility] AND [facility], SWABB ING BOTH THE LOWER VAGIN A AND RECTU M SUBST ANTIA LLY INCRE ASES THE YIELD OF DETEC TION SHMUEL RED WITH SAMPL ING THE VAGIN A ALONE . PENIC ILLIN G, AMPIC ILLIN , OR CEFAZ EDDIE ARE INDIC ATED FOR INTRA PARTU M PROPH YLAXI S OF PERIN ATAL GBS COLON IZATI ON. REFLE X SUSCE PTIBI LITY TESTI NG SHOUL D BE PERFO RMED PRIOR TO USE OF CLIND AMYCI N ONLY ON GBS ISOLA GUI FROM PENIC ILLIN -MONSE RGIC WOMEN WHO ARE CONSI DERED A HIGH RISK FOR ANAPH YLAXI S. TREAT MENT WITH VANCO MYCIN WITHO UT ADDIT IONAL TESTI NG IS WARRA NTED IF RESIS TANCE TO CLIND AMYCI N IS NOTED . Not Available [facility] ([facility]) [address] [facility], [place], [address], 03/09/2016 07:14:16 05/10/20 16 05/12/2016 bacte rial vagin osis + vagin itis panel , vagin al trich vag by GONZALEZ NEGATI VE negati ve Not Available [facility] ([facility]) [address] [facility], [place], [address], 05/13/2016 07:14:18 05/10/20 16 05/12/2016 bacte rial vagin osis + vagin itis panel , vagin al chlamydia trachomatis, GONZALEZ NEGATI VE negati ve Not Available [facility] ([facility]) [address] [place], [address], 05/13/2016 07:14:18 05/10/20 16 05/12/2016 bacte rial vagin osis + vagin itis panel , vagin al neisseria gonorrhoeae, GONZALEZ NEGATI VE negati ve Not Available [facility] ([facility]) [address] [place], [address], 05/13/2016 07:14:18 05/10/20 16 05/13/2016 bacte rial vagin osis + vagin itis panel , vagin al atopobium vaginae HIGH - 2 score abnormal Not Available [facility] ([facility]) [address] [place], [address], 05/13/2016 07:14:18 05/10/20 16 05/13/2016 bacte rial vagin osis + vagin itis panel , vagin al bvab 2 HIGH - 2 score abnormal Not Available [facility] ([facility]) [address] [place], [address], 05/13/2016 07:14:18 05/10/20 16 05/13/2016 bacte rial vagin osis + vagin itis panel , vagin al megasphaera 1 HIGH - 2 score abnormal CALCU LATE TOTAL SCORE BY JOSELUIS G THE 3 INDIV IDUAL BACTE RIAL VAGIN OSIS (BV) MARKE R SCORE S TOGET HER. TOTAL SCORE IS INTER PRETE D FOLLO WS: TOTAL SCORE 0-1: INDIC ATES THE ABSEN CE OF BV. TOTAL SCORE 2: INDET ERMIN ATE FOR BV. ADDIT IONAL CLINI ARJUN DATA SHOUL D BE EVALU ATED TO ESTAB JAVED A DIAGN OSIS. TOTAL SCORE 3-6: INDIC ATES THE PRESE NCE OF BV. THIS TEST WAS DEVEL OPED AND ITS PERFO RMANC E PAO CTERI STICS DETER MINED BY [employer]. IT HAS NOT BEEN CLEAR ED OR APPRO EFREN BY THE FOOD AND DRUG ADMIN ISTRA TION. THE FDA HAS DETER MINED THAT SUCH CLEAR ANCE OR APPRO GAVIOTA IS NOT NECES SUNNY. Not Available [facility] ([facility]) [address] [place], [address], 05/13/2016 07:14:18 05/10/20 16 05/13/2016 bacte rial vagin osis + vagin itis panel , vagin al russell albicans, GONZALEZ NEGATI VE negati ve Not Available [facility] ([facility]) [address] [place], [place], [id number], 05/13/2016 07:14:18 05/10/20 16 05/13/2016 bacte rial vagin osis + vagin itis panel , vagin al russell glabrata, GONZALEZ NEGATI VE negati ve THIS TEST WAS DEVEL OPED AND ITS PERFO RMANC E PAO CTERI STICS DETER MINED BY [facility]. IT HAS NOT BEEN CLEAR ED OR APPRO EFREN BY THE FOOD AND DRUG ADMIN ISTRA TION. THE FDA HAS DETER MINED THAT SUCH CLEAR ANCE OR APPRO GAVIOTA IS NOT NECES SUNNY. Not Available [facility] ([facility]) [address] [facility], [place], [address], 05/13/2016 07:14:18 Result Notes None recorded. Problems Name Problem SNOMED Code Status Onset Date Resolution Date Notes Provider Name and Address Organization Details Recorded Time Pain 99672203 Active PATIENT IS WITH PAIN AND NOT ABLE TO KEEP FOOD DOWN April Arevalo MD Attn: Harmony g,[address] [facility], [place], [address], [facility] - [facility], [facility] 6 15:57:47 Miscarri age with complica tion 22884558 Completed 2012 Lindsey Stan [facility], [place] - [facility] 6 15:57:26 Bacteria l vaginosi s 513708903 Active Lindsey Isringhau sen null, [place] - [facility] 6 15:57:26 Bacteria l vaginosi s 038316290 Completed Lindsey Isringh[place] [facility] 6 15:57:26 Gestatio n period, 11 weeks 54781900 Active Lindsey Isringhau sen [place], [place] - [facility] 6 15:57:26 Gestatio n period, 11 weeks 42061778 Completed Lindsey Isringhau [place] [facility] 6 15:57:26 Nausea 041646412 Active Lindsey Isring[place] [facility] 6 15:57:26 Nausea 009819009 Completed Lindsey Isringhau sen null, [place] - [facility] 6 15:57:26 Cannabis abuse 29145645 Active April Arevalo MD Attn: Harmony sofia,[address] [place], [address] [place] [address] - [facility] 6 15:57:47 Glucose level outside referenc e range 084486460 Active Lindsey Isringhau sen null, [place] - [facility] 6 15:57:26 Glucose level outside referenc e range 857357922 Completed Lindsey Isringhau sen null, [place] - [facility] 6 15:57:26 Gestatio n period, 33 weeks 59587996 Active Lindsey Isringhau sen null, [place] - [facility] 6 15:57:26 Gestatio n period, 33 weeks 73230057 Completed Lindsey Isringhau sen null, [place] - [facility] 6 15:57:26 Notes:low lying placenta Problem Notes None recorded. Procedures Surgical History Date Name Laterality Status Provider Name and Address Organization Details Recorded Time 6 Date of Last Pap Smear completed Mary Darden MA [facility] 01/23/2016 14:25:10 Dilation and Curettage completed Mary Darden MA [facility] 01/23/2016 14:25:11 Imaging Results None recorded. Procedure Notes None recorded. Medical Equipment None Reported. Allergies Allergen ID Allergen Name Allergen Category Reaction Reaction Severity Criticality Documentation Date Start Date Code Code System Note Provider Name and Address Organization Details Recorded Time 81763 Substance with sulfonami de structure and antibacte rial mechanism of action (substanc e) medicatio n Not available Not available Not available 08/28/2015 44834 8003 SNOMED Not Available Not Available Not Available Medications Name Sig Start Date Stop Date Status Note LastModified by Organization Details LastModified Time Vitamin B-6 25 mg tablet TAKE 1 TABLET BY MOUTH EVERY 6 HOURS 2015 active Not Available Not Available Not Avai lable Phenergan 12.5 mg rectal suppository Insert 1 suppository every 4 hours by rectal route. 2015 active Not Available Not Available Not Avai lable Vitamin tablet Take 1 tablet every day by oral route for 30 days. 2015 active Not Available Not Available Not Avai lable oxycodone-ac etaminophen 5 mg-325 mg tablet active Not Available Not Available Not Available metocloprami de 5 mg tablet TAKE 1 TABLET BY MOUTH EVERY 8 HOURS. active Not Available Not Available No t Available Flagyl 500 mg tablet Take 1 tablet twice a day by oral route for 7 days. 2015 active Not Available Not Available Not Avai lable ibuprofen 600 mg tablet active Not Available Not Available Not Available Unisom (doxylamine) 25 mg tablet TAKE 1/2 TABLET BY MOUTH EVERY 6 HOURS 2015 active Not Available Not Available Not Avai lable nitrofuranto in monohydrate/ macrocrystal s 100 mg capsule active Not Available Not Available Not Available ProAir HFA 90 mcg/actuatio n aerosol inhaler active Not Available Not Available Not Available Maalox Advanced 200 mg-200 mg-20 mg/5 mL oral suspension Take 1 mL 4 times a day by oral route. 2015 active Not Available Not Available Not Avai lable Vitals Date Recorded Body mass index (BMI) Body weight Body height Systolic blood pressure Diastolic blood pressure Provider Name and Address Organization Details Last Updated DateTime 03/05/2016 30.2 kg/m2 05140.25 712 g 162.56 cm 102 mm[Hg] 72 mm[Hg] Christina Arevalo MA [place] - [facility] 6 11:50:38 Date Recorded Body height Body mass index (BMI) Systolic blood pressure Diastolic blood pressure Provider Name and Address Organization Details Last Updated DateTime 03/11/2016 162.56 cm 30.6 kg/m2 118 mm[Hg] 72 mm[Hg] Christina Arevalo MA [facility] 03/11/2016 12:01:14 Date Recorded Body height Body mass index (BMI) Systolic blood pressure Diastolic blood pressure Provider Name and Address Organization Details Last Updated DateTime 03/19/2016 162.56 cm 31.2 kg/m2 115 mm[Hg] 64 mm[Hg] Mag Padilla RN [facility] 03/19/2016 12:13:39 Date Recorded Body weight Provider Name an d Address Organization Details Last Updated DateTime 03/19/2016 80726.05268 g April Arevalo MD Attn: Accounting,[address] [place], [address], [facility] 03/19/2016 12:40:33 Date Recorded Body height Body mass index (BMI) Provider Name and Address Organization Details Last Updated DateTime 03/23/2016 162.56 cm 31.9 kg/m2 Christina Arevalo MA [facility] 03/23/2016 11:11:19 Date Recorded Body weight Provider Name an d Address Organization Details Last Updated DateTime 03/23/2016 94134.72254 g April Arevalo MD Attn: Accounting,[address] [place], [address], [facility] 03/23/2016 11:18:16 Date Recorded Body height Body weight Body mass index (BMI) Systolic blood pressure Diastolic blood pressure Provider Name and Address Organization Details Last Updated DateTime 05/10/2016 162.56 cm 58531.4 g 27.8 kg/m2 117 mm[Hg] 74 mm[Hg] Mag Padilla RN [facility] 6 12:25:40 Social History None recorded. Functional Status None recorded. Mental Status None recorded. Family History Relationship Description Onset Age of this Age Resolved Age Notes LastModified by Organization Details LastModified Time Mother Hypertensive disorder okolade Not available 2015 15:57:33 Mother Diabetes mellitus border line okolade Not available 2016 15:57:33 Medical History Condition Response Coronary Artery Disease N Kidney Cyst N Blood Diseases N Hyperthyroidism N Blood disorders N Blood Transfusion N MRSA N Emphysema N Depression N COPD N Blood Clots N Pneumonia N Premature N Peripheral Arterial Disease N Edema N TIA N Headaches/Migraines N Anxiety Disorder N Obesity N Polyps N Infertility N Acid Reflux (GERD) N Hematuria N Stroke N Neck Injury N Polio N Hospital Admission other than N Neurologic Disorder N Other Sleep Disorders N Rheumatoid Arthritis N Fibromyalgia N Abdominal Aortic Aneurysm Repair N Kidney Disease N Heart Conditions N Heart Disease/Heart Problems N Hospitalizations N Brain Tumors N Acne N Skin Problems N Eating Disorder N Meningitis N Constipation N Tuberculosis N Cerebral Palsy N Myocardial Infarction N Asthma Y Substance Abuse N Peripheral Vascular Disease N Vertigo N Sleep Disorder N Cirrhosis N Pulmonary Embolism N Chicken Pox N Hematologic Disease N Flomax Use Past or Present N Anxiety/Depression N Thyroid Disease N Colon Cancer N Lung Disease N Glaucoma N Developmental or Behavioral Disorders N Bipolar N Pacemaker N Diverticulitis/Diverticulosis N Orthopedic Problems N Anesthesia Complications N Orthotics N Head Injury/Concussion N Congenital Anomalies N Daley Bite N Chronic Kidney Disease N Endometriosis N Liver Disease N Schizophrenia N Dialysis N Speech Delay N Chronic Obstructive Pulmonary Disease N Parkinson's Disease N Thyroid Problems N GI Problems N Developmental Delay N Anemia N Multiple Sclerosis N Immune System Disorder N Colon Polyps N Heart Attack ([place]) N Diabetes N Cardiomyopathy N Blood Transfusions N Heart Problems/Murmur N Eye Trauma N Congestive Heart Failure (CHF) N Valvular Heart Disease N Hyperlipidemia N Double Vision N Abuse/Domestic Violence N Hepatitis B N Lupus N Epilepsy/Seizures N Reflux/GERD N Aneurysm N Heart Disease N Bronchitis N Pre-Eclampsia N Hypertension N Heart Failure N Other N Gout N High Blood Pressure N Atrial Fibrillation N Kidney Stones N Head Trauma/Injury N Congenital Heart Disease N Spine Problems N Gastrointestinal Disease N Lung Mass N Sinusitis N Obstructive Sleep Apnea N Muscle, Joint, or Bone Problems N Autoimmune disease N Vision or Eye Problems N Arthritis N Blood Clot N Cancer N Seasonal allergies N Leg or Foot Ulcers N Raynaud's Disease N Aortic Aneurysm N Arrhythmia N Headaches N Heart Problems N Ambl[place]pia N Ear or Hearing Problems N Hyperparathyroidism N Migraines N Artificial Joints N Kidney or Bladder Problems N NSAID Use N Encephalitis N PTSD N Ulcers N Prostate Hypertrophy N Bleeding Disorder N AIDS/HIV N Urinary Tract Infection N Back Problems N Allergies N Atrial Flutter N GERD/Reflux N Hepatitis N Autism Spectrum Disorder (ASD) N Breast Cancer N Hernia N Hypothyroidism N Breast Problem N Genitourinary Disease N Deep Vein Thrombosis N Varicose Veins N Cystic Fibrosis N Hearing Loss N Developmental Problems N Carotid Disease N Vitamin D Deficiency N ADHD N Bladder or Kidney Problems N High Cholesterol N Meniers N Valvular Abnormalities N Psychiatric/Mental Health Condition N Organ Transplant N Foot Deformity N Allergies/Hayfever N Dyslipidemia N Hyponatremia N Diabetic Eye Disease N Osteoporosis/Osteopenia N Back Pain N Proteinuria N Mental Illness N Neurological Problems N Ovarian Cancer N Bedwetting N Seizures/Epilepsy N Kidney Failure N Ocular trauma N Diverticulitis N Dementia N Sleep Apnea N Mental Problems N Warfarin Management N Osteoporosis N Gynecological History Statement/Question Response Abnormal Pap N Sexually Active? Y On BCP's at Conception? N Menses Monthly Y STIs/STDs N Date of Last Pap Smear 08/28/2015 Sexual Problems? N Obstetrics History GPAL:G 3 P 2 0 1 2 Type Value Multiple Births 0 Full Term 2 Induced 0 Spontaneous 1 Premature 0 Living 2 Ectopics 0 Total 3 Immunizations Vaccine Type Date Status Note Provider Nam e and Address Organization Details Recorded Time Tdap 01/09/2016 completed Not Available [facility] 06/30/2019 02:44:47 Influenza, split virus, quadrivalent, PF 03/11/2016 completed Not Available [facility] 0 02:46:39 Past Encounters Encounter ID Performer Location Encounter Start Date Encounter Closed Date Diagnosis/Indication Diagnosis SNOMED-CT Code Diagnosis ICD10 Code Diagnosis Note [id number] MD [facility] ([place] [address]) [address] [place] [address] 08/28/2015 09:25:43 08/29/2015 10:25:03 test positive 097832631 Z32.01 First trim estrella 57466189 Z33.1 [id number] MD [facility] ([facility]) [address] [place] [address] 09/18/2015 11:53:44 09/22/2015 03:40:08 Gestation period, 11 weeks 30077249 Z3A.11 [id number] MD [facility] ([facility]) [address] [place] [address] 10/17/2015 14:14:19 10/18/2015 11:18:39 Normal [id number] Z34.82 [id number] MD [facility] ([place] [address]) [address] [facility] [place] [address] 11/14/2015 14:04:52 11/14/2015 19:36:35 Normal 32310473 Z34.82 [facility] 482358626 R11.0 [id number] MD [facility] ([place] [address]) [address] [facility] [place] [address] 12/26/2015 10:11:08 12/27/2015 12:43:48 Normal 69296070 Z34.82 Bacterial vaginosis 4197 66579 N76.0 [id number] MD [facility] ([place] [address]) [address] [facility] [place] [address] 01/09/2016 13:49:57 01/09/2016 20:39:59 Normal [id number] Z34.82 [id number] MD [facility] ([place] [address]) [address] [facility] [place] [address] 01/23/2016 14:16:43 01/23/2016 19:49:09 Normal [id number] Z34.82 [id number] MD [facility] ([place] [address]) [address] [facility] [place] [address] 02/06/2016 14:02:02 02/09/2016 09:56:56 Normal 32341524 Z34.83 [id number] MD [facility] ([place] [address]) [address] [facility] [place] [address] 02/20/2016 14:17:39 02/21/2016 15:45:55 Gestation period, 33 weeks 00190208 Z3A.33 Normal [id number] Z34.83 [id number] MD [facility] ([place] [address]) [address] [facility] [place] [address] 03/05/2016 11:39:33 03/07/2016 17:16:26 Normal [id number] Z34.83 [id number] MD [facility] ([place] [address]) [address] [facility] [place] [address] 03/11/2016 11:42:57 03/11/2016 12:49:52 Normal [id number] Z34.83 [id number] MD [facility] ([facility]) [address] [facility] [place] [address] 03/19/2016 11:59:58 03/19/2016 13:13:09 Normal [id number] Z34.83 [id number] MD [facility] ([facility]) [address] [facility] [place] [address] 03/23/2016 11:04:39 2016 16:04:17 Normal [id number] Z34.83 [id number] MD [facility] ([facility]) [address] [facility] [place] [address] 05/10/2016 12:07:20 05/11/2016 08:52:05 Vaginal discharge 652663673 N89.8 care 81324109 8 Z39.2 Health Concerns Section Related Observation LastModified by Organization Detai ls LastModified Time None Recorded Concern Status LastModified by Organization Details LastModified Time None Recorded Advance Directives Directive None Recorded Payers Encounter Date Sequence Insurance Name Policy Number Policy Thomas Covered Member ID Thomas Member ID Guarantor Name 03/05/2016 1 [place] [id number] Eleanor E Junaid [id number] Eleanor Junaid 03/11/2016 1 [place] [id number] Eleanor E Junaid [id number] Eleanor Junaid 03/19/2016 1 [place] [id number] Eleanor E Junaid [id number] Eleanor Junaid 03/23/2016 1 [place] [id number] Eleanor E Junaid [id number] Eleanor Junaid 05/10/2016 1 [place] [id number] Eleanor E Junaid [id number] Eleanor Junaid Notes Date Note Type Note Provider Name and Address Organization Details Recorded Time 05/10/2016 text/html VisitReported bypatient.Onset/Jose ing:date of delivery: (2016) Quality: Context:complicatio ns of : none; complications of labor: none; complications: none; good support from partner/family Associated Symptoms:no abnormal bleeding; no pelvic pain; laceration well healed; no constipation; no fecal incontinence; no dysuria; no urinary incontinence; no fever; no problems; no mastitis April Arevalo MD Attn: Accounting,[address] [place], [address], [facility] - [facility] 06/14/2016 13:07:37 OBGyn Episode Ob Episode Information Episode Created Date Number of Fetuses Patient Bloodtype Patient rh Status Prepregnancy Weight lbs Domestic Partner Domestic Partner Phone Father Name District Sales Manager Status 08/28/19 16 1 O Positive SONIA [facility] CLOSED Fetus Data First Name Last Name Admitted to NICU Weight (g) Sex Living Outcome Pediatric Complications Fetus ID Race Codes Race Delivery Type Salas Brianna a false 3175.14 4 M true Full Term [id number] 2106-3 White Vaginal Problems Problem Notes Problem Name Start Date End Date Resolution Snomed Code Not e Miscarriage with complication 78870924 2012 Bacterial vaginosis 835630585 Gestation period, 11 weeks 503 01093 Nausea 863934626 Glucose level outside reference range 953677105 Gestation period, 33 weeks 783 [address]9880 Servando Calculation Initial Servando Date Initial Exam Date Initial Exam Provider Initial Ultrasound Date Last Menstrual Period Date Ultra Sound Weeks Gestation 04/05/2016 08/28/2015 [email or web address] 08/28/2015 06/30/2015 8 Eighteen To Twenty Week Servando Update Ultra Sound Date Fundal Height At Umbil Quickening Date Ultra Sound Latest Weeks Gestation Final Servando Confirmed By Final Servando Confirmed Date Final Servando Date Ultra Sound Latest Days Gestation 10/30/19 16 17 04/05/20 16 4 Pre- Flowsheet Flowsheet Date 08/28/2015 Gurrola Score Blood Edema Fundus Height Fundus Units Glucose Ketones Leukocytes Nitrite Labor Signs Protein Cervic Dilation Cervic Effacement Cervic Station Type Weight in lbs Pre/Post Dialysis Refused 159.695319542596 BP Diastolic BP Location Tested BP Systolic BP Type 62 100 Fetus Heart Rate Present A Present Fetus Movement Comments Patient is here for her firs t OB visit. Patient reports being seen in the ED for hyperemesis gravidarum. Patient also reports being treated for a UTI. Patient reports epigastric pain and feeling a bulge in the epigastric region. No mass was palpable. Patient also reports right flank pain. No CVA tenderness was elicited. Tylenol was recommended for pain. precautions were given. Flowsheet Date 09/18/2015 Gurrola Score Blood Edema Fundus Height Fundus Units Glucose Ketones Leukocytes Nitrite Labor Signs Protein Cervic Dilation Cervic Effacement Cervic Station neg none none negative neg Type Weight in lbs Pre/Post Dialysis Refused BP Diastolic BP Location Tested BP Systolic BP Type 70 120 Fetus Heart Rate Present A Present Fetus Movement Comments Patient offers no complaints . Patient states that nausea has improved. cardiac activity was demonstrated on bedside sonogram. Flowsheet Date 10/17/2015 Gurrola Score Blood Edema Fundus Height Fundus Units Glucose Ketones Leukocytes Nitrite Labor Signs Protein Cervic Dilation Cervic Effacement Cervic Station 15 Type Weight in lbs Pre/Post Dialysis Refused 163.905856162483 BP Diastolic BP Location Tested BP Systolic BP Type 70 112 Fetus Heart Rate Present A 160 Fetus Movement Comments Patient denies abdominal thomas n or contractions, denies vaginal bleeding or leakage of fluid. Quad screen was ordered. Anatomy scan was ordered. precautions labor were given. Flowsheet Date 11/14/2015 Gurrola Score Blood Edema Fundus Height Fundus Units Glucose Ketones Leukocytes Nitrite Labor Signs Protein Cervic Dilation Cervic Effacement Cervic Station 19 Type Weight in lbs Pre/Post Dialysis Refused 159.654541330001 BP Diastolic BP Location Tested BP Systolic BP Type 72 130 Fetus Heart Rate Present A 159 Fetus Movement Comments Weight loss was noted. Patie nt states that she is still vomiting. Rx for phernegan and reglan was sent to pharmacy. Quad screen and anatomy scan were within normal limits. precautions were given. Flowsheet Date 12/26/2015 Gurrola Score Blood Edema Fundus Height Fundus Units Glucose Ketones Leukocytes Nitrite Labor Signs Protein Cervic Dilation Cervic Effacement Cervic Station 27 Type Weight in lbs Pre/Post Dialysis Refused 168.909023841445 BP Diastolic BP Location Tested BP Systolic BP Type Fetus Heart Rate Present A 141 Fetus Movement A Yes Comments No compliants. CBC, GCT, TDA P next visit. Flowsheet Date 01/09/2016 Gurrola Score Blood Edema Fundus Height Fundus Units Glucose Ketones Leukocytes Nitrite Labor Signs Protein Cervic Dilation Cervic Effacement Cervic Station neg 34 1+ negative trace Type Weight in lbs Pre/Post Dialysis Refused 177.291514705568 BP Diastolic BP Location Tested BP Systolic BP Type 70 108 sitting Fetus Heart Rate Present A 150 Fetus Movement A Yes Comments SFH > dates. Will order OB U S. Patient denies contractions, denies vaginal bleeding or leakage of fluid. Reports good movements. labor precautions were given. CBC, GCT, TDAP was ordered. Flowsheet Date 01/23/2016 Gurrola Score Blood Edema Fundus Height Fundus Units Glucose Ketones Leukocytes Nitrite Labor Signs Protein Cervic Dilation Cervic Effacement Cervic Station neg 30 none negative neg Type Weight in lbs Pre/Post Dialysis Refused 175.219367585241 BP Diastolic BP Location Tested BP Systolic BP Type 72 112 sitting Fetus Heart Rate Present A 154 Fetus Movement A Yes Comments 3hr GTT was normal. Patient complains of a sharp pain in her lower abdomen. States that it feels tight. Pain is better with ambulation. Patient was informed that she most like has round ligament pain. Urinalysis was suggestive of UTI. Urine culture was ordered. Will treat for asymptomatic bacteriuria. Patient was instructed to go labor and delivery for NST. labor precautions were given. Flowsheet Date 02/06/2016 Gurrola Score Blood Edema Fundus Height Fundus Units Glucose Ketones Leukocytes Nitrite Labor Signs Protein Cervic Dilation Cervic Effacement Cervic Station neg 33 none negative neg Type Weight in lbs Pre/Post Dialysis Refused 176.379655993985 BP Diastolic BP Location Tested BP Systolic BP Type 72 100 Fetus Heart Rate Present A 131 Fetus Movement A Yes Comments Patient offers no complaints . Denies abdominal pain or contractions. Denies vaginal bleeding or leakage of fluid. Reports good movements. labor precautions were given. Flowsheet Date 02/20/2016 Gurrola Score Blood Edema Fundus Height Fundus Units Glucose Ketones Leukocytes Nitrite Labor Signs Protein Cervic Dilation Cervic Effacement Cervic Station neg 34 none trace 1+ Type Weight in lbs Pre/Post Dialysis Refused 180.31464793218 BP Diastolic BP Location Tested BP Systolic BP Type 62 108 sitting Fetus Heart Rate Present A 159 Fetus Movement A Yes Comments Patient c/o back pain. Patie nt has trace leukocytes in urine. Will order urine culture. GBS culture next visit. Refill for reglan was sent to the pharmacy as per patient request. Flowsheet Date 03/05/2016 Gurrola Score Blood Edema Fundus Height Fundus Units Glucose Ketones Leukocytes Nitrite Labor Signs Protein Cervic Dilation Cervic Effacement Cervic Station neg 36 none negative neg Type Weight in lbs Pre/Post Dialysis Refused 176.286656501063 BP Diastolic BP Location Tested BP Systolic BP Type 72 102 Fetus Heart Rate Present A Present Fetus Movement A Yes Comments Patient is c/o upper back pa in radiating to the chest. Pain is not present as at time of evaluation. The likelihood of the pain being musculoskeletal in origin was discussed with the patient. GBS culture was sent. Flu vaccine next visit. labor precautions were given. Flowsheet Date 03/11/2016 Gurrola Score Blood Edema Fundus Height Fundus Units Glucose Ketones Leukocytes Nitrite Labor Signs Protein Cervic Dilation Cervic Effacement Cervic Station neg 38 negative trace Type Weight in lbs Pre/Post Dialysis Refused BP Diastolic BP Location Tested BP Systolic BP Type 72 118 Fetus Heart Rate Present A 138 Fetus Movement A Yes Comments Patient refers pelvic pressu re. Patient denies abdominal pain or contractions. Denies vaginal bleeding or leakage of fluid. Reports good movements. Flu vaccination was ordered. Flowsheet Date 03/19/2016 Gurrola Score Blood Edema Fundus Height Fundus Units Glucose Ketones Leukocytes Nitrite Labor Signs Protein Cervic Dilation Cervic Effacement Cervic Station neg 37 none negative neg 2cm 50% - 1 Type Weight in lbs Pre/Post Dialysis Refused 182.077532907365 BP Diastolic BP Location Tested BP Systolic BP Type 64 115 sitting Fetus Heart Rate Present A 150 Fetus Movement A Yes Comments Patient still c/o pelvic pre ssure. Patient denies vaginal bleeding and leakage of fluid. Labor precautions were given. Flowsheet Date 03/23/2016 Gurrola Score Blood Edema Fundus Height Fundus Units Glucose Ketones Leukocytes Nitrite Labor Signs Protein Cervic Dilation Cervic Effacement Cervic Station neg none 38 none negative neg 2cm 50% - 3 Type Weight in lbs Pre/Post Dialysis Refused 186.499360384445 BP Diastolic BP Location Tested BP Systolic BP Type Fetus Heart Rate Present A 154 Fetus Movement A Yes Comments Patient refers some contract ions. Patient denies vaginal bleeding or leakage of fluid. Reports good movements. Labor precautions were given. Menstrual History Last Menstrual Date Menses Monthly On Bcp Conception Prior Menses Frequency Hcg Plus Date Menarche Onset Age 0106/30/2015 true false 05/30/2015 5 08/28/19 1 6 13 Genetic Screening And Infection History Question Response Note Patient's Age Will Be 35 Yea rs Or Older At Estimated Date of Delivery false Thalassemia (Telugu, Slovak, Mediterranean, Or Background): MCV < 80 false Neural Tube Defect (Meningom yelocele, Spina Bifida, Or Anencephaly) false Congenital Heart Defect false Down Syndrome false Adair-Sachs (eg, Denominational, Cajun, Kazakh-Maldivian) f alse Nelson Disease false Sickle Cell Disease Or Trait () false Hemophilia Or Other Blood Disorders false Muscular Dystrophy false Cystic Fibrosis false Edgefield's Chorea false Mental Retardation/Autism false If Yes, Was Person Tested For Fragile X? false Other Inherited Genetic Or Chromosomal Disorder false Maternal Metabolic Disorder (eg, Type 1 Diabetes , PKU) true PATERNAL GRANDMOTHER Patient Or Baby's Father Had A Child With Defects Not Listed Above false Recurrent Loss, Or A Stillbirth false Medications (including Suppl ements, Vitamins, Herbs, OTC Drugs), Illicit/Recreational Drugs, Alcohol false If Yes, Agent(s) And Strength/Dosage false Any Other Genetic History false Live With Someone With TB Or Exposed To TB false Patient Or Partner Has History Of Genital Herpes false Rash Or Viral Illness Since Last Menstrual Perio d false History Of STD, Gonorrhea, Chlamydia, HPV, Syphi lis false Other Infection History false Delivery Information Delivery Date Delivery Type Labor Anesthesia Weeks Gestation Incision Type Labor Labor Length Hrs Delivered By Post Complications Tubal Sterilization Discharge Date Comments 6 [facility] [address] Luna 03/30/2016 Discharge Information Feeding Method Contraceptive Method Maternal HG B and HCT Levels Breast Ob Episode Information Episode Created Date Number of Fetuses Patient Bloodtype Patient rh Status Prepregnancy Weight lbs Domestic Partner Domestic Partner Phone Father Name District Sales Manager Status 08/28/19 16 1 CLOSED Fetus Data First Name Last Name Admitted to NICU Weight (g) Sex Living Outcome Pediatric Complications Fetus ID Race Codes Race Delivery Type 3628.73 6 F Full Term [id number] Vaginal Servando Calculation Initial Servando Date Initial Exam Date Initial Exam Provider Initial Ultrasound Date Last Menstrual Period Date Ultra Sound Weeks Gestation 0 Eighteen To Twenty Week Servando Update Ultra Sound Date Fundal Height At Umbil Quickening Date Ultra Sound Latest Weeks Gestation Final Servando Confirmed By Final Servando Confirmed Date Final Servando Date Ultra Sound Latest Days Gestation 0 0 Menstrual History Last Menstrual Date Menses Monthly On Bcp Conception Prior Menses Frequency Hcg Plus Date Menarche Onset Age Delivery Information Delivery Date Delivery Type Labor Anesthesia Weeks Gestation Incision Type Labor Labor Length Hrs Delivered By Post Complications Tubal Sterilization Discharge Date Comments 5 None 40 false Discharge Information Feeding Method Contraceptive Method Maternal HG B and HCT Levels Ob Episode Information Episode Created Date Number of Fetuses Patient Bloodtype Patient rh Status Prepregnancy Weight lbs Domestic Partner Domestic Partner Phone Father Name District Sales Manager Status 08/28/19 16 1 CLOSED Fetus Data First Name Last Name Admitted to NICU Weight (g) Sex Living Outcome Pediatric Complications Fetus ID Race Codes Race Delivery Type , Spontane ous [id number] Servando Calculation Initial Servando Date Initial Exam Date Initial Exam Provider Initial Ultrasound Date Last Menstrual Period Date Ultra Sound Weeks Gestation 0 Eighteen To Twenty Week Servando Update Ultra Sound Date Fundal Height At Umbil Quickening Date Ultra Sound Latest Weeks Gestation Final Servando Confirmed By Final Servando Confirmed Date Final Servando Date Ultra Sound Latest Days Gestation 0 0 Menstrual History Last Menstrual Date Menses Monthly On Bcp Conception Prior Menses Frequency Hcg Plus Date Menarche Onset Age Delivery Information Delivery Date Delivery Type Labor Anesthesia Weeks Gestation Incision Type Labor Labor Length Hrs Delivered By Post Complications Tubal Sterilization Discharge Date Comments 3 7 fetus stop growing, patient had to get a D&C Discharge Information Feeding Method Contraceptive Method Maternal HG B and HCT Levels
--- OUTSIDE RECORDS SUMMARY | 2024-07-17 08:28 | XMS_ITS | Referral Summary ---
Author Organization [facility] Address [address] [place] [id number] Care Team Providers Care Vender Name Role Phone Adalid Velazquez MD Primary Care Provider [phone] Encounters Date Type Department Care Team Description 07/04/2024 Telephone [facility] Pulmonary at [address] [place] [phone] Yasmine Lopez LPN Reminders 05/29/2024 Orders Only [facility] Pulmonary at [address] [place] [address] Harsha Cameron MD 05/28/2024 Telephone [facility] Pulmonary at [address] [place] [address] Yasmine Lopez LPN Sick Call from Last 3 Months Allergies Active Allergy Reactions Criticality Noted Date Comments Sulfa (Sulfonamide Antibiotics) Medications albuterol 2.5 mg/0.5 mL solution for nebulization Take 0.5 mL (2.5 mg total) by nebulization every 6 (six) hours as needed Active LORazepam (ATIVAN) 0.5 mg tabletIndication s:Insomnia,anxie ty Take 1 tablet (0.5 mg total) by mouth every 8 (eight) hours as needed for anxiety (sleep) 15 tablet Active Additional Information Patient not taking.Reported on 06/02/2023 montelukast (SINGULAIR) 10 mg tablet Take 1 tablet (10 mg total) by mouth nightly Active cyanocobalamin, vitamin B-12, 1,000 mcg/mL kit Inject 1,000 mcg as directed every 30 (thirty) days Active fluticasone-umec lidin-vilanter (TRELEGY ELLIPTA) 200-62.5-25 mcg inhaler Inhale 1 puff daily 60 each 3 4 Active traZODone (DESYREL) 50 mg tablet Take 1 tablet (50 mg total) by mouth nightly as needed 4 Active albuterol-budeso nide 90-80 mcg/actuation HFA aerosol inhaler Inhale 2 puffs every 6 (six) hours as needed (cough, shortness of breath, wheezing) 10.7 g 11 4 Active predniSONE (DELTASONE) 20 mg tablet Take 2 tablets (40 mg) by mouth daily 10 tablet 4 Active Active Problems Problem Noted Date Diagnosed Date Moderate persistent asthma with exacerbation Immunizations Name Administration Dates Next Due Tdap 2016 Social History Tobacco Use Types Packs/Day Years Used Date Smoking Tobacco: Never Smokeless Tobacco: Never Tobacco Cessation:Counseling Given: Not Answered Alcohol Use Standard Drinks/Week Comments Not Currently 0 (1 standard drink = 0.6 oz pur e alcohol) AUDIT-C Answer Date Recorded Q1: How often do you have a drink containing alc ohol? Never 05/30/2022 Average Number of Drinks Not on file 022 Frequency of Binge Drinking Not on file 05/13 Personal Safety Answer Date Recorded Have you ever been in or are you currently in a harmful physical or emotional relationship or is someone making you feel afraid or unsafe? 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 Gender Identity Not on file Sexual Orientation Not on file Last Filed Vital Signs Vital Sign Reading Time Taken Comments Blood Pressure 120/60 04/09/2024 12:57 PM CDT Pulse 100 04/09/2024 12:57 PM CDT Temperature 36.7 ??C (98 ??F) 04/09/2024 12:57 PM CDT Respiratory Rate 16 04/09/2024 12:57 PM CDT Oxygen Saturation 98% 04/09/2024 12:57 PM CDT Inhaled Oxygen Concentration - - Weight 93.6 kg (206 lb 6.4 oz) 04/09/2024 12:57 PM CDT Height 160 cm (5' 3 ) 04/09/2024 12:57 PM CDT Body Mass Index 36.56 04/09/2024 12:57 PM CDT Plan of Treatment Not on file Advance Directives For more information, please contact: [phone] * Full Code (Latest Code Status on File) Date Activated Date Inactivated Comments 05/30/2022 2:57 AM 05/30/2022 8:11 PM Care Teams Vender Relationship Specialty Start Date End Date Adalid Velazquez MD PCP - General Family Practice 05/11/23
--- OUTSIDE RECORDS SUMMARY | 2024-07-17 08:28 | XMS_ITS | Clinical Summary ---
Author Organization [facility] [employer] Address [address] [place] [address] Care Team Providers Care Research Laboratory Manager Name Role Phone BelleDestin sandoval Primary Care Provider Source Comments [facility],non-owned Affiliates and Associated Physician Practices is amultiple site organization consisting of ambulatory clinics and hospital sitesin [place], [place], [place] and [place]. This disclosure is being madepursuant to the Care Everywhere program and may not contain all information available regarding this patient. Last updated 18.[facility] Allergies Active Allergy Reactions Criticality Noted Date Comments Metoclopramide Other 09/28/2018 Patient became sweaty and very anxious Sulfa Drugs Unknown 05/15/2019 Medications * Be aware that medications may not be up to date on this document. Alwaysverify current medications with the patient. Medication Sig Dispensed Refills Start Date End Date Status albuterol HFA (PROAIR HFA) 108 (90 Base) MCG/ACT inhaler Inhale 2 puffs by mouth every 4 hours as needed for Shortness of Breath, Wheezing or Cough 1 Inhaler 05/15/2019 Active Social History Tobacco Use Types Packs/Day Years Used Date Smoking Tobacco: Never Assessed Sex and Gender Information Value Date Recorded Sex Assigned at Not on file Gender Identity Not on file Sexual Orientation Not on file Last Filed Vital Signs Vital Sign Reading Time Taken Comments Blood Pressure 124/74 05/15/2019 10:42 AM DEALERSHIP MANAGER Pulse 98 05/15/2019 10:42 AM DEALERSHIP MANAGER Temperature 36.8 ??C (98.2 ??F) 05/15/2019 10:[address] Respiratory Rate 16 05/15/2019 10:42 AM DEALERSHIP MANAGER Oxygen Saturation 99% 05/15/2019 10:42 AM DEALERSHIP MANAGER Inhaled Oxygen Concentration - - Weight 72.6 kg (160 lb) 05/15/2019 10:42 AM DEALERSHIP MANAGER Height 165.1 cm (5' 5 ) 05/15/2019 10:42 AM DEALERSHIP MANAGER Body Mass Index 26.63 05/15/2019 10:42 AM DEALERSHIP MANAGER Plan of Treatment Health Maintenance Due Date Last Done Comments PAP SMEAR 1985 HIV SCREENING 2000 HEPATITIS C SCREENING 03/25/2003 DTAP/TDAP/TD VACCINES (1 - Tdap) 2004 HEPATITIS B VACCINE (1 of 3 - 19+ 3-dose series) 2004 COVID-19 VACCINE (1 - 2023-2 5 season) 2024 INFLUENZA VACCINE (#1) 2024 03/11/2016 DEPRESSION SCREENING 06/13/2024 ZOSTER VACCINE (1 of 2) 2035 HIB VACCINE Aged Out No longer eligi ble based on patient's age to complete this topic HPV VACCINE Aged Out No longer eligi ble based on patient's age to complete this topic MENINGOCOCCAL (Group B) VACCINE Aged Out No longer eligible based on patient's age to complete this topic MENINGOCOCCAL VACCINE Aged Out No nathanael viridiana eligible based on patient's age to complete this topic PNEUMOCOCCAL VACCINE Aged Out No long er eligible based on patient's age to complete this topic Care Teams Research Laboratory Manager Relationship Specialty Start Date End Date Destin Lyon DO [address] [facility] [address] [place] [id number] PCP - General 01/12/21
--- OUTSIDE RECORDS SUMMARY | 2024-07-17 08:28 | XMS_ITS | Referral Summary ---
Author Organization [facility] Address [address] [place] [address] Care Team Providers Care Switch Maker Name Role Phone BelleDestin sandoval Primary Care Provider [phone] Source Comments [facility],non-owned Affiliates and Associated Physician Practices is amultiple site organization consisting of ambulatory clinics and hospital sitesin [place], [place], [place] and [place]. This disclosure is being madepursuant to the Care Everywhere program and may not contain all information available regarding this patient. Last updated 18.[employer] [facility] Allergies Active Allergy Reactions Criticality Noted Date [...] Comments Blood Pressure 124/74 05/15/2019 10:42 AM CYLINDRICAL MIXER Pulse 98 05/15/2019 10:42 AM CYLINDRICAL MIXER Temperature 36.8 ??C (98.2 ??F) 05/15/2019 10:[address] Respiratory Rate 16 05/15/2019 10:42 AM CYLINDRICAL MIXER Oxygen Saturation 99% 05/15/2019 10:42 AM CYLINDRICAL MIXER Inhaled Oxygen Concentration - - Weight 72.6 kg (160 lb) 05/15/2019 10:42 AM CYLINDRICAL MIXER Height 165.1 cm (5' 5 ) 05/15/2019 10:42 AM CYLINDRICAL MIXER Body Mass Index 26.63 05/15/2019 10:42 AM CYLINDRICAL MIXER Plan of Treatment Not on file Care Teams Switch Maker Relationship Specialty Start Date End Date Destin Lyon DO [address] [facility] [address] [place] [address] PCP - General 01/12/21
--- OUTSIDE RECORDS SUMMARY | 2024-07-17 08:28 | XMS_ITS | Patient Health Summary ---
Author Organization [facility] Address [address] [place] [address] Care Team Providers Care Business Analysis Specialist Name Role Phone BelleDestin sandoval Primary Care Provider Note from [facility],non-owned Affiliates and Associated Physician Practices is amultiple site organization consisting of ambulatory clinics and hospital sitesin [place], [place], [place] and [place]. This disclosure is being madepursuant to the Care Everywhere program and may not contain all information available regarding this patient. Last updated 18.[facility] Allergies * Metoclopramide(Other) * Sulfa Drugs(Unknown) Medications * Be aware that medications may not be up to date on this document. Alwaysverify current medications with the patient. * albuterol HFA (PROAIR HFA) 108 (90 Base) MCG/ACT inhaler(Started 05/15/2019) Inhale 2 puffs by mouth every 4 hours as needed for Shortness of Breath, Wheezing or Cough Social History Tobacco Use Types Packs/Day Years Used Date Smoking Tobacco: Never Assessed Sex and Gender Information Value Date Recorded Sex Assigned at Not on file Gender Identity Not on file Sexual Orientation Not on file Last Filed Vital Signs Vital Sign Reading Time Taken Comments Blood Pressure 124/74 05/15/2019 10:42 AM MILL MANAGER Pulse 98 05/15/2019 10:42 AM MILL MANAGER Temperature 36.8 ??C (98.2 ??F) 05/15/2019 10:[address] Respiratory Rate 16 05/15/2019 10:42 AM MILL MANAGER Oxygen Saturation 99% 05/15/2019 10:42 AM MILL MANAGER Inhaled Oxygen Concentration - - Weight 72.6 kg (160 lb) 05/15/2019 10:42 AM MILL MANAGER Height 165.1 cm (5' 5 ) 05/15/2019 10:42 AM MILL MANAGER Body Mass Index 26.63 05/15/2019 10:42 AM MILL MANAGER Procedures * PULSE OXIMETRY - POINT OF CARE (AMB)(Performed 05/15/2019) Performed for Asthma with acute exacerbation, unspecified asthma severity, unspecified whether persistent (HCC) Results * PULSE OXIMETRY - POINT OF CARE (AMB) (05/15/2019) Oximetry POCT 99 0 - 100 % QC Verified Yes Yes Blood BLOOD SPECIMEN / Unknown 05/15/2019 Hina Hernandez PIN MAKER-DIESEL SERVICE [facility] - POINT O F CARE ORDERABLES Care Teams Business Analysis Specialist Relationship Specialty Start Date End Date Destin Lyon DO [address] [place] [address] PCP - General 01/12/21
--- OUTSIDE RECORDS SUMMARY | 2024-07-17 08:28 | XMS_ITS | Clinical Summary ---
Author Organization [facility] Medical Office Building B Address [address] [place] [address] Care Team Providers Care Sports Recruiter Name Role Phone Adalid Velazquez MD Primary Care Provider [phone] Allergies Active Allergy Reactions Criticality Noted Date Comments Sulfa (Sulfonamide Antibiotics) Medications albuterol 2.5 mg/0.5 mL solution for nebulization Take 0.5 mL (2.5 mg total) by nebulization every 6 (six) hours as needed Active LORazepam (ATIVAN) 0.5 mg tabletIndication s:Insomnia,anxie ty Take 1 tablet (0.5 mg total) by mouth every 8 (eight) hours as needed for anxiety (sleep) 15 tablet 3 Active Additional Information Patient not taking.Reported on [...] Diagnosed Date Moderate persistent asthma with exacerbation Encounters Date Type Department Care Team Description 07/04/[address] [facility] Medical [facility] Pulmonary at [address] [place] [phone] Yasmine Lopez LPN Reminders 05/29/[address] [facility] Pulmonary at [address] [place] [phone] Harsha Cameron MD 05/28/[address] 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 Gender Identity Not on file Sexual Orientation Not on file Obstetrics History Last Filed Vital Signs Vital Sign Reading [...] 04/09/2024 12:57 PM CDT Plan of Treatment Health Maintenance Due Date Last Done Comments Cervical Cancer Screening 1985 Depression Screening 1985 Hepatitis C Screening 1985 Pneumococcal vaccine <65 (1 of 2 - PCV) 1991 Varicella Vaccines (1 of 2 - 13+ 2-dose series) 1998 Hepatitis B Screening 2003 Regular Well Visit/Exam 18-64 2003 Influenza Vaccine (#1) 2024 03/11/2016 DTaP/Tdap/Td Vaccine (3 - Td or Tdap) 2026 2016, 01/09/2016 HPV Vaccines Aged Out No longer eligi ble based on patient's age to complete this topic Advance Directives For more information, please contact: [phone] * Full Code (Latest Code Status on File) Date Activated Date Inactivated Comments 05/30/2022 2:57 AM 05/30/2022 8:11 PM Care Teams Sports Recruiter Relationship Specialty Start Date End Date Adalid Velazquez MD PCP - General Family Practice 05/11/23
--- OUTSIDE RECORDS SUMMARY | 2024-07-17 08:29 | XMS_ITS | Clinical Summary ---
Author Organization [facility] Address [address] [place] [address] Phone Care Team Providers Care Nuclear Reactor Engineer Name Role Phone Clotilde Leung APRN Primary Care Provider [phone]- [phone] Allergies Active Allergy Reactions Criticality Noted Date Comments Metoclopramide Hcl Other (see Comments) 019 Patient became sweaty and very anxious Sulfa Antibiotics Hives 09/28/2018 Medications traZODone (DESYREL) 50 MG Tablet Take 50 mg by mouth nightly as needed for Sleep. 4 Active azithromycin (ZITHROMAX) 500 MG Tablet Take 500 mg by mouth daily. X 3 days 3 Active albuterol (PROVENTIL, VENTOLIN) (2.5 MG/3ML) 0.083% Nebulizer Soln 2.5 mg by Nebulization route every 6 hours as needed. 4 Active ProAir HFA 108 (90 Base) MCG/ACT Aerosol Solution take 2 Puffs by inhalation every 6 hours as needed. 9 Active Resolved Problems Problem Noted Date Diagnosed Date Resolved Date Acute asthma exacerbation 2024 Encounters Date Type Department Care Team Description 04/19/2024 3:58 PM COMMISSION SPECIALIST - 04/19/2024 11:59 PM COMMISSION SPECIALIST Hospital Encounter [facility] [address] [place] [address] Gwen Odell MD Discharge Disposition: Discharged to home or Selfcare 04/19/2024 Travel from Last 3 Months Family History Medical History Relation Name Comments No Known Problems Father No Known Problems Mother Relation Name Status Comments Father Mother Social History Tobacco Use Types Packs/Day Years Used Date Smoking Tobacco: Never Smokeless Tobacco: Never Alcohol Use Standard Drinks/Week Comments Never 0 (1 standard drink = 0.6 oz pur e alcohol) [facility] Utilities Answer Date Recorded In the past 12 months has e electric, gas, oil, or water company threatened to shut off services in your home? Patient declined 2024 Social Connection and Isolation Panel [NHANES] A nswer Date Recorded In a typical week, how many times do you talk on the phone with family, friends, or neighbors? Patient declined 2024 How often do you get togethe r with friends or relatives? Patient declined 2024 How often do you attend mandaen or presybeterian serv ices? Patient declined 2024 Do you belong to any clubs o r organizations such as mandaen groups, unions, fraternal or athletic groups, or school groups? Patient declined 2024 How often do you attend meet ings of the clubs or organizations you belong to? Patient declined 2024 Are you , , di vorced, , never , or living with a partner? Patient declined 2024 AUDIT-C Answer Date Recorded Q1: How often do you have a drink containing alc ohol? Patient declined 2024 Q2: How many drinks containi ng alcohol do you have on a typical day when you are drinking? Patient declined 2024 Q3: How often do you have si x or more drinks on one occasion? Patient declined 2024 Overall Financial Resource Strain (CARDIA) Answe r Date Recorded How hard is it for you to pa y for the very basics like food, housing, medical care, and heating? Patient declined [address] [facility] - Occupational Stress Questionnaire Answer Date Recorded Do you feel stress - tense, restless, nervous, or anxious, or unable to sleep at night because your mind is troubled all the time - these days? Patient declined 2024 Exercise Vital Sign Answer Date Recorde d On average, how many days pe r week do you engage in moderate to strenuous exercise (like a brisk walk)? Patient declined On average, how many minutes do you engage in exercise at this level? Patient declined 2024 Hunger Vital Sign Answer Date Recorded Within the past 12 months, y ou worried that your food would run out before you got the money to buy more. Patient declined Within the past 12 months, t he food you bought just didn't last and you didn't have money to get more. Patient declined PRAPARE - Transportation Answer Date Re corded In the past 12 months, has l ack of transportation kept you from medical appointments or from getting medications? Patient declined 2024 In the past 12 months, has l ack of transportation kept you from meetings, work, or from getting things needed for daily living? Patient declined 2024 Housing Stability Vital Sign Answer Richie e Recorded In the last 12 months, was t here a time when you were not able to pay the mortgage or rent on time? Patient declined 03/29/20 24 In the past 12 months, how m any times have you moved where you were living? 1 2024 At any time in the past 12 m [facility], were you homeless or living in a residential (including now)? Patient declined 2024 Comments No Sex and Gender Information Value Date Recorded Sex Assigned at Not on file Legal Sex Female 7:16 PM CDT Gender Identity Not on file Sexual Orientation Not on file Last Filed Vital Signs Vital Sign Reading Time Taken Comments Blood Pressure 138/80 2024 8:17 AM CDT Pulse 100 2024 8:17 AM CDT Temperature 36.8 ??C (98.3 ??F) 2024 8:17 AM CD T Respiratory Rate 20 2024 8:17 AM CDT Oxygen Saturation 98% 2024 11: 01 AM CDT Inhaled Oxygen Concentration - - Weight 94.2 kg (207 lb 11.2 oz) 024 12:20 AM CDT Height 162.6 cm (5' 4 ) 2024 12:2 0 AM CDT Body Mass Index 35.65 2024 12:20 AM CDT Plan of Treatment Health Maintenance Due Date Last Done Comments Hepatitis C Virus (HCV) Screening 1985 Hepatitis B Immunization (1 of 3 - 19+ 3-dose series) 2004 Pap Smear 2006 Cervical Cancer Screening (CCS) 2015 HPV/Cotest 2015 Influenza Immunization (#1) 2024 03/11/2016 SARS-COV-2 Immunization ( season) 2024 Respiratory Syncytial Virus (RSV) Immunization (Adult) (1 - 1-dose 75+ series) 2060 DTaP/Tdap/Td Immunization Discontinued 2015, 01/09/2016 TdaP Immunization Completed 2016, 01/09/2016 Meningococcal Immunization (ACWY) Aged Out No longer eligible based on patient's age to complete this topic Pneumococcal Immunization Combined Aged Out No longer eligible based on patient's age to complete this topic Rotavirus Immunization Aged Out No lo nger eligible based on patient's age to complete this topic Procedures Procedure Name Priority Date/Time Associated Diagnosis Comments ADULT TRANS THORACIC ECHO 2D COMPLETE Routine 04/19/2024 4:49 PM COMMISSION SPECIALIST Moderate asthma with acute exacerbation, unspecified whether persistent from Last 3 Months Results * ADULT TRANS THORACIC ECHO 2D COMPLETE (04/19/2024 4:49 PM COMMISSION SPECIALIST) AV Peak Grad mmHg 5.86 mmHg RESULTING AGENCY Mean Aortic Valve Gradient (MAVG) 3 mmHg RESULTING AGENCY LV end amos diam cm 3.4 cm RESULTING AGENCY LV end sys diam cm 2.4 cm RESULTING AGENCY Aortic Root Diam cm 2.7 cm RESULTING AGENCY LA vol index ml/m2 29 ml/m2 RESULTING AGENCY LVOT Peak Niels m/sec 1.17 m/sec RESULTING AGENCY AV Peak Niels m/sec 1.21 m/sec RESULTING AGENCY MVA by PHT cm2 3.86 cm2 RESUL TING AGENCY E/A Ratio 1.15 RESULTING AGENCY E/E' 5.2 RESULTING AGENCY AV Area (VTI) cm2 3.28 cm2 RESULTING AGENCY SEPTUM DIASTOLIC CM 1.1 cm RESULTING AGENCY PW DIASTOLIC CM 1 cm RESU LTING AGENCY LA VOLUME 57.2 ml RESULTING AGENCY Anatomical Region Laterality Modality CARDIO N/A Ultrasound Narrative 04/20/2024 8:08 AM COMMISSION SPECIALIST Transthoracic Echocardiography Report (TTE) Patient name ? POLLY Deng ?1985 Patient ID (UPI) ? [id number] ? Study Date04/19/2024 Technical quality: Limited visualization Limitation Reason: Lung artifact Type of Study: TTE procedure: Adult Trans Thoracic Echo 2D Complete, Adult Trans Thoracic Echo 2D Complt W Cont. Priority:RoutineHR: 96 bpmBP: 106/74 mmHg Conclusions Summary - Normal LV size, systolic and diastolic function. Calculated LVEF 67% using biplane method - Normal right ventricular cavity size and normal systolic function. - No significant valvular abnormalities. Findings Mitral Valve The mitral valve is normal. There is no evidence of mitral stenosis. There is no significant mitral regurgitation. Aortic Valve The aortic valve is trileaflet with normal leaflet excursion. There is no evidence of aortic valve stenosis. There is no significant aortic valve insufficiency. Tricuspid Valve The tricuspid valve is normal. There is no evidence of tricuspid stenosis. There is no significant tricuspid regurgitation. There is no evidence of pulmonary hypertension. Pulmonic Valve Not well visualized, no evidence by Doppler interrogation for significant stenosis or regurgitation. Left Atrium The left atrium size is normal. Left Ventricle - Normal LV size, systolic and diastolic function. Calculated LVEF 67% using biplane method Right Atrium The right atrium size is normal. Right Ventricle - Normal right ventricular cavity size and normal systolic function. Pericardial Effusion The pericardium is normal. There is no pericardial effusion visualized. Miscellaneous Aortic root and proximal ascending aorta are normal in size. Atrial septum appears intact. IVC is normal in size and respiratory response. Aortic arch appears normal. Valves Mitral Valve Area (PHT): 3.86 cm^2 Peak E-Wave: 0.69 m/s ?Deceleration Time: 196 msec Peak A-Wave: 0.60 m/s Peak Gradient: 1.93 mmHg P1/2t: 57 msec Tissue Doppler E' Velocity: 0.10 m/s ?E/E':5.2 E/A Ratio: 1.15 ?E/Lat E': 5.2 ?E/Med E':6.4 Aortic Valve Area (continuity): 3.28 cm^2 ? Mean Velocity: 0.84 m/s Area (VTI):3.28 cm^2 ? Mean Gradient: 3 mmHg Peak Velocity: 1.21 m/s ?AV VTI: 19.9 cm Peak Gradient: 5.86 mmHg Tricuspid Valve Peak E-Wave: 0.49 m/s Peak Gradient: 0.97 mmHg Pulmonic Valve Peak Velocity: 1.02 m/s Peak Gradient: 4.16 mmHg LVOT Peak Velocity: 1.17 m/s ? Mean Velocity: 0.80 m/s Peak Gradient: 5 mmHg ? Mean Gradient: 3 mmHg LVOT Diameter: 2 cm ? LVOT VTI: 20.8 cm Stroke Volume: 65 ml ?Stroke Volume Index: 32.66 ml/m^2 Structures Left Ventricle Diastolic Dimension: 3.4 cm ?Systolic Dimension: 2.4 cm Septum Diastolic: 1.1 cm ? Septum Systolic: 1.5 cm PW Diastolic: 1 cm ? PW Systolic: 1.4 cm Diastolic Length: 30.5 cm ?Systolic Length: 15.4 cm EF Calculated: 66.76% ?CI: 3.15 l/min*m^2 CO: 6.27 l/min RWT: 0.59 ?LV EDV: 108 ml FS: 29.41 % ?LV EDV Index: 54 m^2 LV Length: 7.69 cm ? LV ESV: 35.9 ml LVOT Diameter: 2 cm ?LV ESV Index: 18 m^2 Right Ventricle ?RVOT (PLAX) diameter:3.1 cm Tissue Doppler RV S': 13.8 TAPSE: 2.44 cm Left Atrium LA Systolic Pressure: 8.53 mmHg ? LA Area: 20.1 cm^2 ? LA Volume: 57.2 ml ? LA Index: 29ml/m^2 Right Atrium ?RA Area: 11.6 cm^2 Great Vessels Aorta ? Ascending Aorta: 2.8 cm Aorta Root:2.7 cm ? Ascending Aorta Index:1.41 cm/m^2 Billing ICD 9 Codes 1) J45.901-Moderate asthma with acute exacerbation. Demographics Age ?39 ?Gender ? Female Race ? Height ? 64.02 in. ?Weight ? 207.7 lbs. ?BMI (BSA) ?35.63 kg/m^2 (1.99 ? m^2) Puppet Master ?Lizandro Bailey Interpreting ? Dubose ? Referring Physician ?Cathi ?Physician ?Vidya ?Camelia Procedure Note Camelia Dasilva MD - 04/20/2024 Transthoracic Echocardiography Report (TTE) Patient name POLLY Deng Kwame 1985 Patient ID (UPI) [id number] Study Date04/19/2024 Technical quality: Limited visualization Limitation Reason: Lung artifact Type of Study: TTE procedure: Adult Trans Thoracic Echo 2D Complete, Adult Trans Thoracic Echo 2D Complt W Cont. Priority:RoutineHR: 96 bpmBP: 106/74 mmHg Conclusions Summary - Normal LV size, systolic and diastolic function. Calculated LVEF 67% using biplane method - Normal right ventricular cavity size and normal systolic function. - No significant valvular abnormalities. Findings Mitral Valve The mitral valve is normal. There is no evidence of mitral stenosis. There is no significant mitral regurgitation. Aortic Valve The aortic valve is trileaflet with normal leaflet excursion. There is no evidence of aortic valve stenosis. There is no significant aortic valve insufficiency. Tricuspid Valve The tricuspid valve is normal. There is no evidence of tricuspid stenosis. There is no significant tricuspid regurgitation. There is no evidence of pulmonary hypertension. Pulmonic Valve Not well visualized, no evidence by Doppler interrogation for significant stenosis or regurgitation. Left Atrium The left atrium size is normal. Left Ventricle - Normal LV size, systolic and diastolic function. Calculated LVEF 67% using biplane method Right Atrium The right atrium size is normal. Right Ventricle - Normal right ventricular cavity size and normal systolic function. Pericardial Effusion The pericardium is normal. There is no pericardial effusion visualized. Miscellaneous Aortic root and proximal ascending aorta are normal in size. Atrial septum appears intact. IVC is normal in size and respiratory response. Aortic arch appears normal. Valves Mitral Valve Area (PHT): 3.86 cm^2 Peak E-Wave: 0.69 m/s Deceleration Time: 196 msec Peak A-Wave: 0.60 m/s Peak Gradient: 1.93 mmHg P1/2t: 57 msec Tissue Doppler E' Velocity: 0.10 m/s E/E':5.2 E/A Ratio: 1.15 E/Lat E': 5.2 E/Med E':6.4 Aortic Valve Area (continuity): 3.28 cm^2 Mean Velocity: 0.84 m/s Area (VTI):3.28 cm^2 Mean Gradient: 3 mmHg Peak Velocity: 1.21 m/s AV VTI: 19.9 cm Peak Gradient: 5.86 mmHg Tricuspid Valve Peak E-Wave: 0.49 m/s Peak Gradient: 0.97 mmHg Pulmonic Valve Peak Velocity: 1.02 m/s Peak Gradient: 4.16 mmHg LVOT Peak Velocity: 1.17 m/s Mean Velocity: 0.80 m/s Peak Gradient: 5 mmHg Mean Gradient: 3 mmHg LVOT Diameter: 2 cm LVOT VTI: 20.8 cm Stroke Volume: 65 ml Stroke Volume Index: 32.66 ml/m^2 Structures Left Ventricle Diastolic Dimension: 3.4 cm Systolic Dimension: 2.4 cm Septum Diastolic: 1.1 cm Septum Systolic: 1.5 cm PW Diastolic: 1 cm PW Systolic: 1.4 cm Diastolic Length: 30.5 cm Systolic Length: 15.4 cm EF Calculated: 66.76% CI: 3.15 l/min*m^2 CO: 6.27 l/min RWT: 0.59 LV EDV: 108 ml FS: 29.41 % LV EDV Index: 54 m^2 LV Length: 7.69 cm LV ESV: 35.9 ml LVOT Diameter: 2 cm LV ESV Index: 18 m^2 Right Ventricle RVOT (PLAX) diameter:3.1 cm Tissue Doppler RV S': 13.8 TAPSE: 2.44 cm Left Atrium LA Systolic Pressure: 8.53 mmHg LA Area: 20.1 cm^2 LA Volume: 57.2 ml LA Index: 29ml/m^2 Right Atrium RA Area: 11.6 cm^2 Great Vessels Aorta Ascending Aorta: 2.8 cm Aorta Root:2.7 cm Ascending Aorta Index:1.41 cm/m^2 Billing ICD 9 Codes 1) J45.901-Moderate asthma with acute exacerbation. Demographics Age 39 Gender Female Race Height 64.02 in. Weight 207.7 lbs. BMI (BSA) 35.63 kg/m^2 (1.99 m^2) Puppet Master Lizandro Dubose Referring Physician Cathi Physician Vidya Denise us Gwen Cameron MD IMG ECHO ORDERABLES Final Res ult from Last 3 Months Insurance Advance Directives * Full Code (Latest Code Status on File) Date Activated Date Inactivated Comments 03/28/2024 11:43 PM CPR-Full Volodymyr atment: FULL ARREST: Attempt Resuscitation/CPR wit intubation and mechanical ventilation. PRE-ARREST: Use entire range of life support measures to stabilize the patient. Care Teams Nuclear Reactor Engineer Relationship Specialty Start Date End Date Clotilde Leung APRN [address] [place] [address] PCP - General Advanced Practice Nurse 03/29/24
--- NOTE | 2024-07-17 08:31 | ED_ITS ---
HPI - URI/Sore Throat General Chief Complaint: Upper Respiratory Infection Stated Complaint: poss bronchitis Time Seen by Provider: 07/17/24 08:31 Source: patient Mode of arrival: ambulatory Limitations: no limitations History of Present Illness HPI Narrative: 39-year-old female with a history of asthma presented for complaint of cough and chest congestion. Onset yesterday. Patient also endorses last week she had nasal congestion and drainage, cough and headache. She did not seek treatment for that illness. She currently denies shortness of breath, wheezing nausea, vomiting, diarrhea, fevers or lethargy. She has been using albuterol nebulizer, inhalers. Related Data Allergies Allergy/AdvReac Type Severity Reaction Status Date / Time Sulfa (Sulfonamide Allergy Severe Swelling Verified 07/17/24 08:36 Antibiotics) of Lip/Tongue/Throat Review of Systems Review of Systems: Per HPI All systems reviewed & are unremarkable except as noted in HPI and below PMFSH Past Medical History Medical History Cough Asthma Family history of osteoporosis Encounter for long-term (current) use of other medications Nocturnal leg cramps Restless leg syndrome Family History Family History Mother Hypertension Diabetes mellitus Grandparent Family history of malignant neoplasm of breast Family history of type 2 diabetes mellitus Father COPD (chronic obstructive pulmonary disease) Emphysema lung Small vessel disease Grandparent Hypertension Grandparent Diabetes mellitus Social History Social History Smoking status: Never smoker Alcohol intake: never Substance use: current Substance use type: marijuana Other substance usage details: COUPLE TIMES A WEEK Lack of Transportation: No Lack of Food: Never True Current Housing: I Have Housing Concerned About Future Housing: No Difficulty Paying Gas/Electric Bills: YES Difficulty Paying for Meds: No Currently Unemployed: No Education: Decline to Answer Difficulty w/ Childcare or Family Care: No Living arrangements: with family Gender identity (if verbalized by the patient): Female Spiritual care concerns: No Comments At time of signature, I have reviewed and agree with nursing past medical, surgical, social and family history unless otherwise noted. Please see nursing chart for further information. There is no relevant family history pertinent to the presenting complaint Exam Narrative: GENERAL: Well-appearing, in no acute distress. EYES: EOMI. No redness or drainage. Conjunctivae normal. ENT: Mucous membranes pink and moist. congestion and rhinorrhea. TMs normal bilaterally. Throat normal. Uvula midline. NECK: Normal AROM. Supple. CHEST: No respiratory distress. lungs clear to all james. HEART: Regular rate and rhythm. No murmur appreciated. ABDOMEN: Soft, nontender, nondistended, normal active bowel sounds. EXTREMITIES: Normal range of motion. No edema. SKIN: Warm, dry, no rash. Capillary refill normal. Normal skin turgor. NEURO: Alert and oriented x3. Gait steady. PSYCH: Normal affect. Course Course Emergency Course: Patient is aware of diagnosis, understands and agrees to treatment plan. Anticipatory guidance given. Patient agrees to follow-up as directed and is aware of reasons to seek care at the emergency department. Portions of this record may have been created with voice recognition software Level of Care: Express Care Visit MDM - URI/Sore Throat MDM Narrative Medical decision making narrative: Discussed physical exam findings. Advised supportive measures and signs/symptoms to go to the ER. Pt is appropriate for outpt treatment and f/u. Differential Diagnosis Differential diagnosis: Likely upper respiratory infection, otitis media, sinusitis, bronchitis and pharyngitis Discharge Plan Discharge Clinical Impression: Bronchitis Patient Disposition: Home, Self-Care Condition: Stable Instructions: Antibiotic Form, Acute Bronchitis (ED) Additional Instructions: Acute bronchitis can be contagious because it is usually caused by infection with a virus or bacteria. It is usually for a few days but you can be contagious for up to one week. Take medication as directed continue your nebulizer and inhalers as previously prescribed Recommend Flonase spray and Zyrtec (or Claritin/Vivian) If you have nasal congestion over the counter Cough syrup may cause drowsiness; avoid driving or take it at night time. Tylenol 1000mg every 8 hours as needed for pain Symptomatic treatment includes: rest, fluids, and increase humidity of the air at home. Follow up with your primary care provider as needed in 1 week Go to the ER for worsening symptoms or concerns Patient Language: Northern Irish Prescriptions: New prednisone 20 mg tablet 40 mg PO DAILY 5 Days Qty: 10 0RF azithromycin [Zithromax Z-Kyle] 250 mg tablet See Rx Instructions .ROUTE .COMPLEX Qty: 6 0RF Rx Instructions: For 250 mg dose pack: take 500 mg today (day 1), then 250 mg for 4 days (days 2-5) No Action trazodone 50 mg tablet See Rx Instructions .ROUTE .COMPLEX Qty: 90 3RF Dose Instruction: TAKE 1 TABLET BY MOUTH EVERY DAY AT BEDTIME NEEDED FOR INSOMNIA Rx Instructions: TAKE 1 TABLET BY MOUTH EVERY DAY AT BEDTIME NEEDED FOR INSOMNIA albuterol sulfate 2.5 mg /3 mL (0.083 %) solution for nebulization See Rx Instructions .ROUTE .COMPLEX Qty: 75 6RF Dose Instruction: USE 1 VIAL(3ML) VIA NEBULIZER EVERY 4 TO 6 HOURS NEEDED FOR SHORTNESS OF BREATH OR WHEEZING Rx Instructions: USE 1 VIAL(3ML) VIA NEBULIZER EVERY 4 TO 6 HOURS NEEDED FOR SHORTNESS OF BREATH OR WHEEZING albuterol sulfate 90 mcg/actuation HFA aerosol inhaler See Rx Instructions .ROUTE .COMPLEX Qty: 8.5 6RF Dose Instruction: INHALE TWO PUFFS BY MOUTH FOUR TIMES DAILY NEEDED FOR SHORTNESS OF BREATH OR WHEEZING Rx Instructions: INHALE TWO PUFFS BY MOUTH FOUR TIMES DAILY NEEDED FOR SHORTNESS OF BREATH OR WHEEZING Follow-up/Referrals: Adalid Velazquez MD [Primary Care Provider] -
== END 2024-07-17 08:45 | disposition home or self-care (01) ==
PROVIDERS: Emergency Provider Nurse Practitioner Family; PCP Family Medicine
DX: J40 Bronchitis, not specified as acute or chronic (principal); F12.90 Cannabis use, unspecified, uncomplicated; J45.909 Unspecified asthma, uncomplicated; G25.81 Restless legs syndrome
CPT/HCPCS: 99213; G0463

== ENCOUNTER 2024-07-24 14:03 | Outpatient (CLI) | payer OTHER, SELFPAY ==
--- NOTE | ~2024-07-24 | XR_ITS ---
Clinical Indication: Acute bronchitis PA and lateral views of the chest: Comparison: 07/06/2022 Findings: The lungs are clear, without evidence of focal consolidation or pleural effusion. Cardiome diastinal silhouette is within normal limits. Bones and soft tissues are unremarkable. Impression: Normal chest. Reviewed, dictated and finalized at [facility]. ON MANAGER Impression: Normal chest.
--- OUTSIDE RECORDS SUMMARY | 2024-07-24 14:56 | XMS_ITS | Clinical Summary ---
Author Organization [facility] Address [address] [place] [address] Phone Care Team Providers Care Float Phlebotomist Name Role Phone Clotilde Leung NELSON Primary Care Provider +1- [phone] Allergies Active Allergy Reactions Criticality Noted Date [...] Date Resolved Date Acute asthma exacerbation 2024 Family History Medical History Relation Name Comments No Known Problems Father No Known Problems Mother Relation Name Status Comments Father Mother Social History Tobacco Use Types Packs/Day Years Used Date Smoking Tobacco: Never Smokeless Tobacco: Never Alcohol Use Standard Drinks/Week Comments Never 0 (1 standard drink = 0.6 oz pur e alcohol) [facility] Utilities Answer Date Recorded In the past 12 months has [employer], gas, oil, or water [employer] threatened to shut off services in your home? Patient declined 2024 Social Connection and Isolation Panel [NHANES] A nswer Date Recorded In a typical week, how many times do you talk on the phone with family, friends, or neighbors? Patient declined 2024 How often do you get togethe r with friends or relatives? Patient declined 2024 How often do you attend scientology or orthodox serv ices? Patient declined 2024 Do you belong to any clubs o r organizations such as scientology groups, unions, fraternal or athletic groups, or [...] medical care, and heating? Patient declined 2024 [facility] - Occupational Stress Questionnaire Answer Date Recorded [...] any time in the past 12 m [facility], were you homeless or living in a usp (including now)? Patient declined 2024 Comments No Sex and Gender Information Value Date Recorded Sex Assigned at Not on file Legal Sex Female 7:16 PM CDT Gender Identity Not on file Sexual Orientation Not on file Last Filed Vital Signs Vital Sign Reading Time Taken Comments Blood Pressure 138/80 2024 8:17 AM CDT Pulse 100 2024 8:17 AM CDT Temperature 36.8 C (98.3 F) 2024 8:17 AM CDT Respiratory Rate 20 2024 8:17 AM CDT [...] on patient's age to complete this topic Insurance Advance Directives * Full Code (Latest Code Status on File) Date Activated Date Inactivated Comments 03/28/2024 11:43 PM CPR-Full Volodymyr atment: FULL ARREST: Attempt Resuscitation/CPR wit intubation and mechanical ventilation. PRE-ARREST: Use entire range of life support measures to stabilize the patient. Care Teams Float Phlebotomist Relationship Specialty Start Date End Date Clotilde Leung APRN [address] [place] [address] PCP - General Advanced Practice Nurse 03/29/24
--- OUTSIDE RECORDS SUMMARY | 2024-07-24 14:56 | XMS_ITS | Clinical Summary ---
Author Organization [employer] Address [address] [facility] [place] [address] Care Team Providers Care Office Professional Name Role Phone BelleDestin sandoval Primary Care Provider Source Comments [facility] [employer],non-owned Affiliates and Associated Physician Practices is amultiple site organization consisting of ambulatory clinics and hospital sitesin [place], [place], [place] and [place]. This disclosure is being madepursuant to the Care Everywhere program and may not contain all information available regarding this patient. Last updated 18.[employer] Allergies Active Allergy Reactions Criticality Noted Date [...] Comments Blood Pressure 124/74 05/15/2019 10:42 AM MOLDER APPRENTICE Pulse 98 05/15/2019 10:42 AM MOLDER APPRENTICE Temperature 36.8 C (98.2 F) 05/15/2019 10:42 AM MOLDER APPRENTICE Respiratory Rate 16 05/15/2019 10:42 AM MOLDER APPRENTICE Oxygen Saturation 99% 05/15/2019 10:42 AM MOLDER APPRENTICE Inhaled Oxygen Concentration - - Weight 72.6 kg (160 lb) 05/15/2019 10:42 AM MOLDER APPRENTICE Height 165.1 cm (5' 5 ) 05/15/2019 10:42 AM MOLDER APPRENTICE Body Mass Index 26.63 05/15/2019 10:42 AM MOLDER APPRENTICE Plan of Treatment Health Maintenance Due Date [...] age to complete this topic Care Teams Office Professional Relationship Specialty Start Date End Date Destin Lyon DO [address] [facility] [address] [place] [address] PCP - General 01/12/21
--- OUTSIDE RECORDS SUMMARY | 2024-07-24 14:56 | XMS_ITS | Referral Summary ---
Author Organization [facility] Address [address] [place] [id number] Care Team Providers Care Candle Wicker Name Role Phone Adalid Velazquez MD Primary Care Provider [phone] Encounters Date Type Department Care Team Description 07/04/2024 Telephone [facility] Pulmonary at [address] [place] [phone] Yasmine Lopez LPN Reminders 05/29/2024 Orders Only [facility] Pulmonary at [address] [place] [phone] Harsha Cameron MD 05/28/2024 Telephone [facility] Pulmonary at [address] [phone] Yasmine Lopez LPN Sick Call [...] on file 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
--- OUTSIDE RECORDS SUMMARY | 2024-07-24 14:56 | XMS_ITS | Clinical Summary ---
Author Organization [facility] Address [address] [place] [address] Care Team Providers Care Merchandising Assistant Name Role Phone Adalid Velazquez MD Primary Care Provider [phone] Allergies Active Allergy Reactions Criticality Noted Date [...] Type Department Care Team Description 07/04/2024 Telephone [facility] Pulmonary at [address] [place] [phone] Yasmine Lopez LPN Reminders 05/29/2024 Orders Only [facility] Pulmonary at [address] [place] [phone] Harsha Cameron MD 05/28/2024 Telephone [facility] Pulmonary at [address] [phone] Yasmine Lopez LPN Sick Call [...] on file 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
--- OUTSIDE RECORDS SUMMARY | 2024-07-24 14:56 | XMS_ITS | Patient Health Summary ---
Author Organization [facility] [employer] Address [address] [facility] [place] [address] Care Team Providers Care Hot Water Heater Installer Name Role Phone BelleDestin sandoval Primary Care Provider Note from [facility][note 3],non-owned Affiliates and Associated Physician Practices is amultiple site organization consisting of ambulatory clinics and hospital sitesin [place], [place], [place] and [place]. This disclosure is being madepursuant to the Care Everywhere program and may not contain all information available regarding this patient. Last updated 18.[facility] Allergies * Metoclopramide(Other) * Sulfa Drugs(Unknown) Medications [...] Comments Blood Pressure 124/74 05/15/2019 10:42 AM ABATEMENT WORKER Pulse 98 05/15/2019 10:42 AM ABATEMENT WORKER Temperature 36.8 C (98.2 F) 05/15/2019 10:42 AM ABATEMENT WORKER Respiratory Rate 16 05/15/2019 10:42 AM ABATEMENT WORKER Oxygen Saturation 99% 05/15/2019 10:42 AM ABATEMENT WORKER Inhaled Oxygen Concentration - - Weight 72.6 kg (160 lb) 05/15/2019 10:42 AM ABATEMENT WORKER Height 165.1 cm (5' 5 ) 05/15/2019 10:42 AM ABATEMENT WORKER Body Mass Index 26.63 05/15/2019 10:42 AM ABATEMENT WORKER Procedures * PULSE OXIMETRY - POINT OF CARE (AMB)(Performed 05/15/2019) Performed for Asthma with acute exacerbation, unspecified asthma severity, unspecified whether persistent (HCC) Results * PULSE OXIMETRY - POINT OF CARE (AMB) (05/15/2019) Oximetry POCT 99 0 - 100 % QC Verified Yes Yes Blood BLOOD SPECIMEN / Unknown 05/15/2019 Hina Hernandez ELECTRONIC COILS SUPERVISOR-SYSTEMS INTEGRATION ADVISOR LAB - POINT O F CARE ORDERABLES Care Teams Hot Water Heater Installer Relationship Specialty Start Date End Date Destin Lyon DO [address] [address] PCP - General 01/12/21
--- OUTSIDE RECORDS SUMMARY | 2024-07-24 14:56 | XMS_ITS | Referral Summary ---
Author Organization [facility] [employer] Address [address] [place] [address] Care Team Providers Care Fleet Technician Name Role Phone BelleDestin sandoval Primary Care Provider Source Comments [facility] [employer],non-owned Affiliates and Associated Physician Practices is amultiple site organization consisting of ambulatory clinics and hospital sitesin [place], [place], [place] and [place]. This disclosure is being madepursuant to the Care Everywhere program and may not contain all information available regarding this patient. Last updated 18.[employer] Allergies Active Allergy Reactions Criticality Noted Date [...] Comments Blood Pressure 124/74 05/15/2019 10:42 AM AGENT TELEGRAPHER Pulse 98 05/15/2019 10:42 AM AGENT TELEGRAPHER Temperature 36.8 C (98.2 F) 05/15/2019 10:42 AM AGENT TELEGRAPHER Respiratory Rate 16 05/15/2019 10:42 AM AGENT TELEGRAPHER Oxygen Saturation 99% 05/15/2019 10:42 AM AGENT TELEGRAPHER Inhaled Oxygen Concentration - - Weight 72.6 kg (160 lb) 05/15/2019 10:42 AM AGENT TELEGRAPHER Height 165.1 cm (5' 5 ) 05/15/2019 10:42 AM AGENT TELEGRAPHER Body Mass Index 26.63 05/15/2019 10:42 AM AGENT TELEGRAPHER Plan of Treatment Not on file Care Teams Fleet Technician Relationship Specialty Start Date End Date Destin Lyon DO [address] [facility] [address] [place] [address] PCP - General 01/12/21
== END 2024-07-24 14:04 | disposition home or self-care (01) ==
LOC: ANHBWCIMG 14:05
PROVIDERS: PCP Nurse Practitioner Adult Health; Visit Provider Nurse Practitioner Adult Health
DX: J20.9 Acute bronchitis, unspecified (principal)
CPT/HCPCS: 71046